=== PATIENT | male | born 1990 | race American Indian/Alaskan Native ===

== ENCOUNTER → 2017-04-18 | Outpatient (CLI) | payer OTHER ==
[~2017-04-18] MED LIST: AMOX500 PO; CITA20 PO; GABA100 PO; Humalog100 UNIT/1; IBUP800 PO; INSULANPEN SC; LISI5 PO; METO10SY PO; Novolog Fl100 UNIT/1 SC; OMEP40CA12 PO; ONDA4ODT MM; PANT40 PO; PREG75 PO; PROM25 PO; Percocet 5-3251 EACH PO; TOUJEO SOL300 UNIT/1 SQ
[2017-04-18 12:51] LABS: Microalb/Creat Ratio UR, Rand Unable to Calculate mg/g (0.000-30.000); Microalbumin, Random Urine <5.000 mg/L (0.000-20.000)
== END | disposition home or self-care (01) ==
LOC: LAB EV 10:05
PROVIDERS: Internal Medicine Endocrinology, Diabetes & Metabolism
DX: E10.65 Type 1 diabetes mellitus with hyperglycemia (principal)
CPT/HCPCS: 82043; 82570

== ENCOUNTER 2017-12-11 22:49 | Emergency (ER) | payer OTHER ==
[~2017-12-11] VITALS: Ht 182.9 cm; Wt 81.2 kg
[~2017-12-11 22:49] MED LIST changes: -CITA20 PO; -Humalog100 UNIT/1; -IBUP800 PO; -ONDA4ODT MM; -TOUJEO SOL300 UNIT/1 SQ
== END 2017-12-12 00:16 | disposition home or self-care (01) ==
LOC: ER 22:49
DX: S20.212A Contusion of left front wall of thorax, initial encounter (principal); E11.40 Type 2 diabetes mellitus with diabetic neuropathy, unspecified; F17.200 Nicotine dependence, unspecified, uncomplicated; Z79.4 Long term (current) use of insulin; Z79.899 Other long term (current) drug therapy; W50.0XXA Accidental hit or strike by another person, initial encounter
CPT/HCPCS: 71100; 99283-25

== ENCOUNTER 2019-01-22 11:13 | Emergency (ER) | payer OTHER ==
[~2019-01-22] VITALS: Ht 182.9 cm; Wt 77.1 kg
[~2019-01-22 11:13] MED LIST changes: +CITA20 PO; +Humalog100 UNIT/1; +IBUP800 PO; +ONDA4ODT MM; +TOUJEO SOL300 UNIT/1 SQ
[2019-01-22] MEDS ORDERED: Monodox100 MG PO (12:32)
== END 2019-01-22 12:40 | disposition home or self-care (01) ==
LOC: ER 11:13
DX: L02.416 Cutaneous abscess of left lower limb (principal); L03.116 Cellulitis of left lower limb; E10.40 Type 1 diabetes mellitus with diabetic neuropathy, unspecified; F17.200 Nicotine dependence, unspecified, uncomplicated
CPT/HCPCS: 99282

== ENCOUNTER 2020-04-20 19:40 | Inpatient (IN) | payer OTHER ==
[~2020-04-20] VITALS: Ht 182.9 cm; Wt 76.1 kg
[~2020-04-20 19:40] MED LIST changes: +HUMALOG100 UNIT/1 SC; -Humalog100 UNIT/1; +Monodox100 MG PO; +PREG25 PO; -PREG75 PO; -TOUJEO SOL300 UNIT/1 SQ; +TOUJEO SOL300 UNIT/2 SC
[2020-04-20 20:00] LABS: BASOPHILS ABSOLUTE AUTO 0.07 K/mm3 (0.00-0.23); BASOPHILS PERCENT AUTO 1 % (0-2); EOSINOPHILS ABSOLUTE AUTO 0.11 K/mm3 (0.00-0.68); EOSINOPHILS PERCENT AUTO 1 % (0-6); Hematocrit 39.1 % (37.0-53.0); Hemoglobin 12.6 g/dL (13.5-17.5); IMMATURE GRAN ABSOLUTE AUTO 0.05 K/mm3 (0.00-0.10); IMMATURE GRAN PERCENT AUTO 1 % (0-1); LYMPHOCYTES ABSOLUTE AUTO 2.77 K/mm3 (0.84-5.20); LYMPHOCYTES PERCENT AUTO 29 % (21-46); MONOCYTES PERCENT AUTO 8 % (4-13); Mean Corpuscular HGB 30.1 pg (26.0-34.0); Mean Corpuscular HGB Conc 32.2 g/dL (31.5-36.5); Mean Corpuscular Volume 93 fL (80-100); Mean Platelet Volume 11.4 fL (9.1-12.4); NEUTROPHILS ABSOLUTE AUTO 5.69 K/mm3 (1.96-9.15); NEUTROPHILS PERCENT AUTO 60 % (41-73); Platelet Count 222 K/mm3 (150-400); RDW Coefficient Variation 12.2 % (11.7-14.2); Red Blood Cell Count 4.19 M/mm3 (4.30-5.90); White Blood Cell Count 9.49 K/mm3 (4.00-11.30)
[2020-04-20 20:04] LABS: Base Excess Venous -7.4 mmol/L; Bicarbonate Venous 18.7 mmol/L (24.0-30.0); PCO2 Venous 40.4 mmHg (38-42); PO2 Venous 63.5 mmHg (38-42); pH Blood Venous 7.29 (7.34-7.37)
[2020-04-20 20:23] LABS: Alanine Aminotransfer (ALT/SGP 19 U/L (12-78); Albumin, Blood 3.4 g/dL (3.4-5.0); Albumin/Globulin Ratio 1.2 (0.8-1.8); Alk Phos 88 U/L (50-136); Anion Gap 14 mmol/L (6-16); Aspartate Aminotrans (AST/SGOT 14 U/L (12-37); Bilirubin, Total 0.8 mg/dL (0.1-1.0); Blood Urea Nitrogen 15 mg/dL (8-24); CO2, Blood 19 mmol/L (21-32); Calcium, Blood 8.4 mg/dL (8.5-10.1); Chloride, Blood 102 mmol/L (98-108); Creatinine, Blood 0.65 mg/dL (0.60-1.20); Globulin, Blood 2.9 g/dL (2.2-4.0); Glomerular Filtration Rate >60 (60-); Glucose, Blood 488 mg/dL (70-99); Potassium, Blood 4.3 mmol/L (3.5-5.5); Sodium, Blood 135 mmol/L (136-145); Total Protein, Blood 6.3 g/dL (6.4-8.2)
[2020-04-20 21:27] LABS: Beta-hydroxybutyrate 61.4 mg/dL (0.2-2.8)
[2020-04-20 22:04] LABS: Source, Urine Clean Catch
[2020-04-20 22:06] LABS: Bilirubin, Urine Neg (Neg); Blood, Urine 1+ (Neg); Glucose Qualitative, Urine 4+ (Neg); Ketones, Urine 4+ (Neg); Leukocyte Esterase, Urine Neg (Neg); Nitrite, Urine Neg (Neg); Protein, Urine 2+ (Neg); Urobilinogen, Urine NORM (Normal)
[2020-04-20 22:17] LABS: Appearance, Urine Clear (Clear); Color, Urine Yellow (P-Yellow)
[2020-04-20 22:18] LABS: Bacteria Not Seen /hpf; Mucus Light (0-Heavy); Red Blood Cells, Urine 0-2 /hpf (0-2); Squamous Epithelial Cells Rare /hpf (Few); White Blood Cells, Urine Not Seen /hpf (0-5)
[2020-04-20 22:23] LABS: U Amphetamine Screen Not Detected; U Barbituate Screen Not Detected; U Benzodiazapine Screen Not Detected; U Buprenorphine Screen Not Detected; U Cannabinoids Screen DETECTED; U Cocaine Screen Not Detected; U Methadone Screen Not Detected; U Methamphetamine Screen Not Detected; U Opiates Screen Not Detected; U Oxycodone Screen DETECTED; U Phencyclidine Screen Not Detected; U Propoxyphene Screen Not Detected
[2020-04-21 00:10] LABS: Calcium, Ionized (POC) 1.13 mmol/L (1.10-1.46); Chloride (POC) 105 mmol/L (98-108); Creatinine (POC) 0.6 mg/dL (0.8-1.3); Glucose (ISTAT POC) 549 mg/dL (70-99); Hemoglobin (POC) 12.9 g/dL (13.5-17.5); Potassium (POC) 4.7 mmol/L (3.5-5.5); Sodium (POC) 134 mmol/L (135-148); Total CO2 (POC) 12 mmol/L (21-32)
[2020-04-21 02:16] LABS: Anion Gap 22 mmol/L (6-16); Blood Urea Nitrogen 18 mg/dL (8-24); Bun/Creatinine Ratio 22.2 (12.0-20.0); CO2, Blood 10 mmol/L (21-32); Calcium, Blood 8.2 mg/dL (8.5-10.1); Chloride, Blood 105 mmol/L (98-108); Creatinine, Blood 0.81 mg/dL (0.60-1.20); Glomerular Filtration Rate >60 (60-); Glucose, Blood 464 mg/dL (70-99); Potassium, Blood 4.3 mmol/L (3.5-5.5); Sodium, Blood 137 mmol/L (136-145)
--- NOTE | 2020-04-21 03:06 | NUR ---
PT TO ICU 15 VIA GURNEY WITH ED RN @ 0150, PT ALERT AND ORIENTED x4, AMBULATES TO HOSPITAL BED WITH STAND BY ASSISTANCE, O2 SATURATIONS> 95% ON RA, MONITOR SHOWS SINUS TACH WITH HR 110-120, HTN NOTED WITH SBP 160'S. PT DENIES PAIN. INSULIN GTT INF @ 8u/hr, DECREASED TO 5u AFTER CBG UPON ARRIVAL (SEE FLOWSHEET). PT DENIES NAUSEA, REQUESTS WATER, TOLERATING PO INTAKE WELL. PT USES URINAL INDEPENDENTLY, DENIES ANY OTHER GI/ ISSUES. CALL LIGHT WITHIN REACH, PT EDUCATED ON USE.
--- NOTE | 2020-04-21 06:07 | NUR ---
SHIFT SUMMARY PT SLEPT T/O SHIFT, AROUSES TO VERBAL STIMULI, ORIENTED x4, O2 SATURATIONS> 95% ON RA, MONITOR SHOWS SINUS RHYTHM WITH HR 100-115 WHILE RESTING IN BED, HR INCREASES TO 150'S WHILE STANDING TO USE URINAL, PT DENIES DIZZINES/CP/SOB. PT TOLERATING PO FLUID INTAKE, DENIES NAUSEA. PT VOIDING WITH URINAL INDEPENENDENTLY. D5 1/2NS INF @ 1OOml/hr, INSULIN INF @ 2u/hr. CALL LIGHT WITHIN REACH.
[2020-04-21 08:09] LABS: BASOPHILS ABSOLUTE AUTO 0.11 K/mm3 (0.00-0.23); BASOPHILS PERCENT AUTO 1 % (0-2); EOSINOPHILS ABSOLUTE AUTO 0.01 K/mm3 (0.00-0.68); EOSINOPHILS PERCENT AUTO 0 % (0-6); Hematocrit 36.2 % (37.0-53.0); Hemoglobin 11.7 g/dL (13.5-17.5); IMMATURE GRAN ABSOLUTE AUTO 0.16 K/mm3 (0.00-0.10); IMMATURE GRAN PERCENT AUTO 1 % (0-1); LYMPHOCYTES PERCENT AUTO 15 % (21-46); MONOCYTES ABSOLUTE AUTO 1.58 K/mm3 (0.16-1.47); MONOCYTES PERCENT AUTO 8 % (4-13); Mean Corpuscular HGB 30.3 pg (26.0-34.0); Mean Corpuscular HGB Conc 32.3 g/dL (31.5-36.5); Mean Corpuscular Volume 94 fL (80-100); Mean Platelet Volume 11.2 fL (9.1-12.4); NEUTROPHILS ABSOLUTE AUTO 15.51 K/mm3 (1.96-9.15); NEUTROPHILS PERCENT AUTO 76 % (41-73); Platelet Count 239 K/mm3 (150-400); RDW Coefficient Variation 12.4 % (11.7-14.2); RDW Standard Deviation 42.8 fL (35.1-46.3); Red Blood Cell Count 3.86 M/mm3 (4.30-5.90); White Blood Cell Count 20.47 K/mm3 (4.00-11.30)
[2020-04-21 08:30] LABS: Alanine Aminotransfer (ALT/SGP 22 U/L (12-78); Albumin, Blood 3.1 g/dL (3.4-5.0); Albumin/Globulin Ratio 1.1 (0.8-1.8); Alk Phos 84 U/L (50-136); Anion Gap 14 mmol/L (6-16); Aspartate Aminotrans (AST/SGOT 14 U/L (12-37); Bilirubin, Total 0.5 mg/dL (0.1-1.0); Blood Urea Nitrogen 11 mg/dL (8-24); Bun/Creatinine Ratio 15.3 (12.0-20.0); CO2, Blood 17 mmol/L (21-32); Calcium, Blood 7.9 mg/dL (8.5-10.1); Chloride, Blood 109 mmol/L (98-108); Creatinine, Blood 0.72 mg/dL (0.60-1.20); Globulin, Blood 2.8 g/dL (2.2-4.0); Glomerular Filtration Rate >60 (60-); Glucose, Blood 186 mg/dL (70-99); Potassium, Blood 3.9 mmol/L (3.5-5.5); Sodium, Blood 140 mmol/L (136-145); Total Protein, Blood 5.9 g/dL (6.4-8.2)
--- NOTE | 2020-04-21 09:54 | NUR ---
permisdsion of care was given at 0800 on 04/21/2020.
--- NOTE | 2020-04-21 12:30 | NUR ---
REASSESSMENT PT REMAINS ON INSULIN GTT AND STARTED ON SSI W/ MEALS. PT REPORTS NAUSEA IS GREATLY IMPROVED AND IS TOLERATING MEALS. PLAN TO TRANSITION OFF OF INSULIN GTT THIS EVENING. PT HAS BEEN AMBULATORY IN ROOM AND ABLE TO USE RESTROOM INDEPDANTLY.
--- NOTE | 2020-04-21 13:00 | NUR ---
PT HAS AMBULATED TO THE TOILET MULTIPLE TIMES. NO DIFFICULTIES WITH URINATION OR BM. PT REMAINS A/O. PT IS REMAINING ON INSULIN DRIP. PT ATE A FULL BREAKFAST AND LUNCH. HUMALOG ON LOW SLIDING SCALE STARTED AT LUNCH. PT REPORTS NO PAIN.
--- NOTE | 2020-04-21 14:36 | NUR ---
Permission of care Patient gave [facility], permission to assist with care on 04/21/2020.
[2020-04-21 15:28] LABS: Anion Gap 9 mmol/L (6-16); Blood Urea Nitrogen 9 mg/dL (8-24); Bun/Creatinine Ratio 12.9 (12.0-20.0); CO2, Blood 23 mmol/L (21-32); Calcium, Blood 8.4 mg/dL (8.5-10.1); Chloride, Blood 110 mmol/L (98-108); Glomerular Filtration Rate >60 (60-); Glucose, Blood 177 mg/dL (70-99); Potassium, Blood 3.6 mmol/L (3.5-5.5); Sodium, Blood 142 mmol/L (136-145)
--- NOTE | 2020-04-21 16:00 | NUR ---
REASSESSMENT PT REMAINS ON INSULIN GTT, CBG STABLE. PT TOLERATED BREAKFAST AND LUNCH, REPORTS NAUSEA IS STILL IMPROVING. VITALS REMAIN STABLE. SINUS RHYTHM ON THE MONITOR.
--- NOTE | 2020-04-21 18:21 | NUR ---
SHIFT SUMMARY PT IS ALERT AND ORIENTEDx4, FEELING BETTER TODAY. NAUSEA HAS GREATLY IMPROVED THROUGH OUT THE DAY. INSULIN GTT REMAINS ON WITH STABLE CBG'S. LONG ACTING INSULIN GIVEN. ORDERS RECEIVED TO STOP INSULIN GTT 2 HOURS AFTER LONG ACTING INSULIN, WHICH WILL BE 1999 TONIGHT. ORDERS ALSO RECEIVED THAT PT MAY CHANGE STATUS TO MEDICAL WITH TELEMETERY AFTER INSULIN GTT IS STOPPED. VITALS HAVE REMAINED STABLE WITH IMPROVEMENT TO HR TODAY. PT IS CURRENTLY SINUS RHYTHM ON THE MONITOR.
[2020-04-21 20:26] LABS: Anion Gap 4 mmol/L (6-16); Blood Urea Nitrogen 7 mg/dL (8-24); Bun/Creatinine Ratio 11.4 (12.0-20.0); CO2, Blood 27 mmol/L (21-32); Calcium, Blood 8.3 mg/dL (8.5-10.1); Chloride, Blood 110 mmol/L (98-108); Creatinine, Blood 0.62 mg/dL (0.60-1.20); Glomerular Filtration Rate >60 (60-); Glucose, Blood 214 mg/dL (70-99); Potassium, Blood 3.4 mmol/L (3.5-5.5); Sodium, Blood 141 mmol/L (136-145)
--- NOTE | 2020-04-21 21:51 | NUR ---
ASSUMED CARE AT 1900 PT IS ALERT/ORIENTED AND IS ABLE TO MAKE HIS NEEDS KNOWN. PT WATCHING TV DURING BEDSIDE REPORT AND PLESENT TO RN'S. PT NO COMPLAINTS OF NAUSEA AND WAS ABLE TO EAT 100% OF DINNER. VSS. PT USES TOILET APPRORIATLLY. INSULIN GTT TURNED OFF AT 2001, POC GLUCOSE 188 AT THAT TIME. CALL LIGHT IN REACH, BED IN LOW POSITION. 1L OF NS FINISHED INFUSING, PT NOW SALINE LOCKED. SEE SHIFT ASSESSMENT FOR FULL ASSESSMENT.
[2020-04-22 02:09] LABS: BASOPHILS ABSOLUTE AUTO 0.08 K/mm3 (0.00-0.23); BASOPHILS PERCENT AUTO 1 % (0-2); EOSINOPHILS ABSOLUTE AUTO 0.17 K/mm3 (0.00-0.68); EOSINOPHILS PERCENT AUTO 2 % (0-6); Hematocrit 33.2 % (37.0-53.0); Hemoglobin 11.1 g/dL (13.5-17.5); IMMATURE GRAN ABSOLUTE AUTO 0.08 K/mm3 (0.00-0.10); IMMATURE GRAN PERCENT AUTO 1 % (0-1); LYMPHOCYTES ABSOLUTE AUTO 3.72 K/mm3 (0.84-5.20); LYMPHOCYTES PERCENT AUTO 36 % (21-46); MONOCYTES ABSOLUTE AUTO 0.88 K/mm3 (0.16-1.47); MONOCYTES PERCENT AUTO 8 % (4-13); Mean Corpuscular HGB 30.4 pg (26.0-34.0); Mean Corpuscular HGB Conc 33.4 g/dL (31.5-36.5); Mean Corpuscular Volume 91 fL (80-100); Mean Platelet Volume 10.9 fL (9.1-12.4); NEUTROPHILS ABSOLUTE AUTO 5.51 K/mm3 (1.96-9.15); NEUTROPHILS PERCENT AUTO 53 % (41-73); Platelet Count 215 K/mm3 (150-400); RDW Coefficient Variation 12.1 % (11.7-14.2); RDW Standard Deviation 40.6 fL (35.1-46.3); Red Blood Cell Count 3.65 M/mm3 (4.30-5.90); White Blood Cell Count 10.44 K/mm3 (4.00-11.30)
[2020-04-22 02:14] LABS: Anion Gap 4 mmol/L (6-16); Blood Urea Nitrogen 6 mg/dL (8-24); CO2, Blood 29 mmol/L (21-32); Calcium, Blood 8.1 mg/dL (8.5-10.1); Chloride, Blood 111 mmol/L (98-108); Creatinine, Blood 0.67 mg/dL (0.60-1.20); Glomerular Filtration Rate >60 (60-); Glucose, Blood 239 mg/dL (70-99); Potassium, Blood 3.3 mmol/L (3.5-5.5); Sodium, Blood 144 mmol/L (136-145)
--- NOTE | 2020-04-22 05:39 | NUR ---
END OF SHIFT SUMMARY PT SLEPT MOST OF THE NIGHT. PT IS ALERT/ORIENTED AND ABLE TO MAKE NEEDS KNOWN. VSS. NO COMPLAINTS OF NAUSEA, PT TOLERATES FOOD AND LIQUIDS GREAT. PT USED TOILET IN ROOM WHEN NEEDED WITHOUT ASSISTANCE. BED IN LOW POSITION, CALL LIGHT WITHIN REACH. WILL REPORT TO AM RN WHEN AVIALABLE.
--- NOTE | 2020-04-22 10:26 | NUR ---
DISCHARGE INSTRUCTIONS GONE OVER WITH PT. INSTRUCTED PT ON FOLLOW UP APPOINTMENTS. PT STATED UNDERSTANDING. BELONGINGS GATHERED AND GIVEN TO PT. PT ESCORTED TO MAIN ENTRANCE WHERE HIS RIDE WAS WAITING FOR HIM.
== END 2020-04-22 10:20 | disposition home or self-care (01) | DRG 639 ==
LOC: ER 19:40 → ERHOLD 04-21 00:42 → ICUW 04-21 01:50
PROVIDERS: Emergency Medicine; Student in an Organized Health Care Education/Training Program; ADMIT Internal Medicine
DX: E10.10 Type 1 diabetes mellitus with ketoacidosis without coma (principal); D64.9 Anemia, unspecified; F17.210 Nicotine dependence, cigarettes, uncomplicated; F19.10 Other psychoactive substance abuse, uncomplicated; E10.40 Type 1 diabetes mellitus with diabetic neuropathy, unspecified; E86.0 Dehydration; Z79.4 Long term (current) use of insulin
CPT/HCPCS: 36415; 80047; 80048; 80053; 81001; 82010; 82803; 82947; 85014; 85025; 96361; 96372; 96374; 96375; 99285-25; A9270; G0378; J1630; J1650; J1815; J2405; J2765; J3010; J7030; J7042

== ENCOUNTER 2020-11-04 13:23 | Emergency (ER) | payer OTHER ==
[~2020-11-04] VITALS: Ht 185.4 cm; Wt 78.0 kg
[2020-11-04 13:55] LABS: BASOPHILS ABSOLUTE AUTO 0.09 K/mm3 (0.00-0.23); BASOPHILS PERCENT AUTO 1 % (0-2); EOSINOPHILS ABSOLUTE AUTO 0.02 K/mm3 (0.00-0.68); EOSINOPHILS PERCENT AUTO 0 % (0-6); Hematocrit 36.7 % (37.0-53.0); Hemoglobin 12.2 g/dL (13.5-17.5); IMMATURE GRAN ABSOLUTE AUTO 0.03 K/mm3 (0.00-0.10); IMMATURE GRAN PERCENT AUTO 0 % (0-1); LYMPHOCYTES ABSOLUTE AUTO 1.26 K/mm3 (0.84-5.20); LYMPHOCYTES PERCENT AUTO 10 % (21-46); MONOCYTES ABSOLUTE AUTO 0.55 K/mm3 (0.16-1.47); MONOCYTES PERCENT AUTO 5 % (4-13); Mean Corpuscular HGB 30.2 pg (26.0-34.0); Mean Corpuscular HGB Conc 33.2 g/dL (31.5-36.5); Mean Corpuscular Volume 91 fL (80-100); Mean Platelet Volume 11.3 fL (9.1-12.4); NEUTROPHILS ABSOLUTE AUTO 10.19 K/mm3 (1.96-9.15); NEUTROPHILS PERCENT AUTO 84 % (41-73); Platelet Count 194 K/mm3 (150-400); RDW Coefficient Variation 11.8 % (11.7-14.2); RDW Standard Deviation 39.4 fL (35.1-46.3); Red Blood Cell Count 4.04 M/mm3 (4.30-5.90); White Blood Cell Count 12.14 K/mm3 (4.00-11.30)
[2020-11-04 14:27] LABS: Alanine Aminotransfer (ALT/SGP 31 U/L (12-78); Albumin, Blood 3.2 g/dL (3.4-5.0); Alk Phos 106 U/L (50-136); Anion Gap 10 mmol/L (6-16); Aspartate Aminotrans (AST/SGOT 28 U/L (12-37); Bilirubin, Total 0.6 mg/dL (0.1-1.0); Blood Urea Nitrogen 11 mg/dL (8-24); CO2, Blood 24 mmol/L (21-32); Calcium, Blood 8.5 mg/dL (8.5-10.1); Chloride, Blood 104 mmol/L (98-108); Creatinine, Blood 0.69 mg/dL (0.60-1.20); Globulin, Blood 3.3 g/dL (2.2-4.0); Glomerular Filtration Rate >60 (60-); Glucose, Blood 300 mg/dL (70-99); Potassium, Blood 3.7 mmol/L (3.5-5.5); Sodium, Blood 138 mmol/L (136-145); Total Protein, Blood 6.5 g/dL (6.4-8.2); Troponin I <0.015 ng/mL (0.000-0.040)
[2020-11-04] MEDS ORDERED: Inderal40 MG PO (15:32)
[2020-11-04] MEDS ORDERED: PROM25 PO (16:10)
[2020-11-05] MEDS ORDERED: ONDA4ODT MM ×3 (15:02→15:14)
[2020-11-05] MEDS ORDERED: FAMO20 PO ×3 (15:02→15:14)
== END 2020-11-04 16:48 | disposition home or self-care (01) ==
LOC: ER 13:23
PROVIDERS: Emergency Medicine
DX: A08.4 Viral intestinal infection, unspecified (principal); E11.10 Type 2 diabetes mellitus with ketoacidosis without coma; Z87.891 Personal history of nicotine dependence; Z79.4 Long term (current) use of insulin; Z79.899 Other long term (current) drug therapy
CPT/HCPCS: 80053; 82010; 82800; 82947; 84484; 85025; 93005; 93010; 96374; 96375; 99284-25; J1170; J2550; J7030

== ENCOUNTER 2020-11-05 10:11 | Emergency (ER) | payer OTHER ==
[~2020-11-05] VITALS: Ht 182.9 cm; Wt 78.0 kg
[~2020-11-05 10:11] MED LIST changes: +Inderal40 MG PO
[2020-11-05 10:36] LABS: BASOPHILS ABSOLUTE AUTO 0.04 K/mm3 (0.00-0.23); BASOPHILS PERCENT AUTO 0 % (0-2); EOSINOPHILS PERCENT AUTO 0 % (0-6); Hematocrit 34.5 % (37.0-53.0); Hemoglobin 11.5 g/dL (13.5-17.5); IMMATURE GRAN ABSOLUTE AUTO 0.08 K/mm3 (0.00-0.10); IMMATURE GRAN PERCENT AUTO 1 % (0-1); LYMPHOCYTES ABSOLUTE AUTO 1.91 K/mm3 (0.84-5.20); LYMPHOCYTES PERCENT AUTO 13 % (21-46); MONOCYTES ABSOLUTE AUTO 0.84 K/mm3 (0.16-1.47); MONOCYTES PERCENT AUTO 6 % (4-13); Mean Corpuscular HGB 30.3 pg (26.0-34.0); Mean Corpuscular HGB Conc 33.3 g/dL (31.5-36.5); Mean Corpuscular Volume 91 fL (80-100); Mean Platelet Volume 11.3 fL (9.1-12.4); NEUTROPHILS ABSOLUTE AUTO 12.45 K/mm3 (1.96-9.15); NEUTROPHILS PERCENT AUTO 81 % (41-73); Platelet Count 210 K/mm3 (150-400); RDW Standard Deviation 40.4 fL (35.1-46.3); Red Blood Cell Count 3.79 M/mm3 (4.30-5.90); White Blood Cell Count 15.32 K/mm3 (4.00-11.30)
[2020-11-05 11:17] LABS: Alanine Aminotransfer (ALT/SGP 37 U/L (12-78); Albumin, Blood 3.1 g/dL (3.4-5.0); Alk Phos 99 U/L (50-136); Anion Gap 14 mmol/L (6-16); Aspartate Aminotrans (AST/SGOT 38 U/L (12-37); Beta-hydroxybutyrate 38.2 mg/dL (0.2-2.8); Bilirubin, Total 0.5 mg/dL (0.1-1.0); Blood Urea Nitrogen 8 mg/dL (8-24); CO2, Blood 19 mmol/L (21-32); Calcium, Blood 8.3 mg/dL (8.5-10.1); Chloride, Blood 107 mmol/L (98-108); Creatinine, Blood 0.73 mg/dL (0.60-1.20); Glomerular Filtration Rate >60 (60-); Glucose, Blood 271 mg/dL (70-99); Magnesium, Blood 1.7 mg/dL (1.6-2.4); Potassium, Blood 3.6 mmol/L (3.5-5.5); Sodium, Blood 140 mmol/L (136-145); Total Protein, Blood 6.1 g/dL (6.4-8.2)
[2020-11-05 11:26] LABS: Base Excess Venous -3.4 mmol/L; Bicarbonate Venous 22.6 mmol/L (24.0-30.0); PCO2 Venous 26.4 mmHg (38-42); pH Blood Venous 7.49 (7.34-7.37)
[2020-11-05 11:27] LABS: Source, Urine Clean Catch
[2020-11-05 11:32] LABS: Appearance, Urine Clear (Clear); Bilirubin, Urine Neg (Neg); Blood, Urine 4+ (Neg); Color, Urine Yellow (P-Yellow); Glucose Qualitative, Urine 4+ (Neg); Ketones, Urine 4+ (Neg); Leukocyte Esterase, Urine Neg (Neg); Nitrite, Urine Neg (Neg); Protein, Urine 3+ (Neg); Urobilinogen, Urine NORM (Normal)
[2020-11-05 11:49] LABS: Bacteria Rare /hpf; Squamous Epithelial Cells Rare /hpf (Few); U Amphetamine Screen Not Detected; U Barbituate Screen Not Detected; U Benzodiazapine Screen Not Detected; U Cannabinoids Screen DETECTED; U Cocaine Screen DETECTED; U Methadone Screen Not Detected; U Methamphetamine Screen Not Detected; U Opiates Screen Not Detected; U Phencyclidine Screen Not Detected; White Blood Cells, Urine 0-2 /hpf (0-5)
[2020-11-05 11:50] LABS: U Buprenorphine Screen Not Detected; U Oxycodone Screen Not Detected; U Propoxyphene Screen Not Detected
[2020-11-05 14:20] LABS: Blood Urea Nitrogen 7 mg/dL (8-24); Bun/Creatinine Ratio 10.1 (12.0-20.0); CO2, Blood 22 mmol/L (21-32); Calcium, Blood 8.1 mg/dL (8.5-10.1); Glomerular Filtration Rate >60 (60-); Glucose, Blood 198 mg/dL (70-99)
[2020-11-05 14:48] LABS: Anion Gap 10 mmol/L (6-16); Chloride, Blood 110 mmol/L (98-108); Potassium, Blood 3.4 mmol/L (3.5-5.5); Sodium, Blood 142 mmol/L (136-145)
[2020-11-05] MEDS ORDERED: ONDA4ODT MM ×2 (15:02→15:14)
[2020-11-05] MEDS ORDERED: FAMO20 PO ×2 (15:02→15:14)
== END 2020-11-05 15:15 | disposition home or self-care (01) ==
LOC: ER 10:11
PROVIDERS: Student in an Organized Health Care Education/Training Program
DX: E10.10 Type 1 diabetes mellitus with ketoacidosis without coma (principal); E10.40 Type 1 diabetes mellitus with diabetic neuropathy, unspecified; E86.0 Dehydration; E87.6 Hypokalemia; R10.13 Epigastric pain; R11.2 Nausea with vomiting, unspecified; R19.7 Diarrhea, unspecified; F12.90 Cannabis use, unspecified, uncomplicated; Z87.891 Personal history of nicotine dependence; Z79.4 Long term (current) use of insulin; Z79.899 Other long term (current) drug therapy
CPT/HCPCS: 36415; 80048; 80053; 81001; 82010; 82803; 82947; 83690; 83735; 85025; 96361; 96374; 96375; 99285-25; A9270; J1815; J2765; J7030

== ENCOUNTER 2022-01-31 20:02 | Emergency (ER) | payer OTHER ==
[~2022-01-31] VITALS: Ht 182.9 cm; Wt 81.7 kg
[~2022-01-31 20:02] MED LIST changes: +FAMO20 PO
[2022-01-31 22:40] LABS: BASOPHILS ABSOLUTE AUTO 0.12 K/mm3 (0.00-0.23); BASOPHILS PERCENT AUTO 1 % (0-2); EOSINOPHILS ABSOLUTE AUTO 0.35 K/mm3 (0.00-0.68); EOSINOPHILS PERCENT AUTO 3 % (0-6); Hematocrit 33.1 % (37.0-53.0); Hemoglobin 11.3 g/dL (13.5-17.5); IMMATURE GRAN ABSOLUTE AUTO 0.04 K/mm3 (0.00-0.10); IMMATURE GRAN PERCENT AUTO 0 % (0-1); LYMPHOCYTES ABSOLUTE AUTO 2.48 K/mm3 (0.84-5.20); LYMPHOCYTES PERCENT AUTO 19 % (21-46); MONOCYTES ABSOLUTE AUTO 1.51 K/mm3 (0.16-1.47); MONOCYTES PERCENT AUTO 12 % (4-13); Mean Corpuscular HGB 30.6 pg (26.0-34.0); Mean Corpuscular HGB Conc 34.1 g/dL (31.5-36.5); Mean Corpuscular Volume 90 fL (80-100); Mean Platelet Volume 11.4 fL (9.1-12.4); NEUTROPHILS PERCENT AUTO 65 % (41-73); Platelet Count 253 K/mm3 (150-400); RDW Coefficient Variation 13.1 % (11.7-14.2); RDW Standard Deviation 43.2 fL (35.1-46.3); Red Blood Cell Count 3.69 M/mm3 (4.30-5.90)
[2022-01-31 22:58] LABS: Albumin, Blood 3.4 g/dL (3.4-5.0); Bilirubin, Total 0.6 mg/dL (0.1-1.0); Bun/Creatinine Ratio 16.8 (12.0-20.0); Calcium, Blood 8.7 mg/dL (8.5-10.1); Creatinine, Blood 0.95 mg/dL (0.60-1.20); Globulin, Blood 3.4 g/dL (2.2-4.0); Potassium, Blood 3.9 mmol/L (3.5-5.5); Total Protein, Blood 6.8 g/dL (6.4-8.2)
[2022-02-01] MEDS ORDERED: AMOCLA875 PO (00:17)
== END 2022-02-01 00:35 | disposition home or self-care (01) ==
LOC: ER 20:02
PROVIDERS: Student in an Organized Health Care Education/Training Program
DX: S01.351A Open bite of right ear, initial encounter (principal); W54.0XXA Bitten by dog, initial encounter; L08.9 Local infection of the skin and subcutaneous tissue, unspecified; E10.40 Type 1 diabetes mellitus with diabetic neuropathy, unspecified; F17.290 Nicotine dependence, other tobacco product, uncomplicated
CPT/HCPCS: 36415; 80053; 83605; 85025; 93005; 93010; A9270; J2543; J7030

== ENCOUNTER 2022-02-07 05:36 | Inpatient (IN) | payer OTHER ==
[~2022-02-07] VITALS: Ht 185.4 cm; Wt 79.8 kg
[~2022-02-07 05:36] MED LIST changes: +AMOCLA875 PO
[2022-02-07 06:01] LABS: Bicarbonate Venous 13.8 mmol/L (24.0-30.0); PCO2 Venous 34.4 mmHg (38-42)
[2022-02-07 06:02] LABS: pH Blood Venous 7.19 (7.34-7.37)
[2022-02-07 06:03] LABS: BASOPHILS ABSOLUTE AUTO 0.14 K/mm3 (0.00-0.23); BASOPHILS PERCENT AUTO 1 % (0-2); EOSINOPHILS ABSOLUTE AUTO 0.02 K/mm3 (0.00-0.68); EOSINOPHILS PERCENT AUTO 0 % (0-6); Hematocrit 42.4 % (37.0-53.0); Hemoglobin 13.4 g/dL (13.5-17.5); IMMATURE GRAN ABSOLUTE AUTO 0.13 K/mm3 (0.00-0.10); IMMATURE GRAN PERCENT AUTO 1 % (0-1); LYMPHOCYTES ABSOLUTE AUTO 0.98 K/mm3 (0.84-5.20); LYMPHOCYTES PERCENT AUTO 6 % (21-46); MONOCYTES ABSOLUTE AUTO 0.78 K/mm3 (0.16-1.47); MONOCYTES PERCENT AUTO 4 % (4-13); Mean Corpuscular HGB 29.3 pg (26.0-34.0); Mean Corpuscular HGB Conc 31.6 g/dL (31.5-36.5); Mean Corpuscular Volume 93 fL (80-100); Mean Platelet Volume 11.5 fL (9.1-12.4); NEUTROPHILS ABSOLUTE AUTO 15.85 K/mm3 (1.96-9.15); NEUTROPHILS PERCENT AUTO 89 % (41-73); Platelet Count 338 K/mm3 (150-400); RDW Coefficient Variation 12.6 % (11.7-14.2); RDW Standard Deviation 43.2 fL (35.1-46.3); Red Blood Cell Count 4.57 M/mm3 (4.30-5.90)
[2022-02-07 06:08] LABS: Source, Urine Clean Catch
[2022-02-07 06:11] LABS: Bilirubin, Urine Neg (Neg); Blood, Urine 2+ (Neg); Color, Urine Yellow (P-Yellow); Glucose Qualitative, Urine 4+ (Neg); Ketones, Urine 4+ (Neg); Leukocyte Esterase, Urine Neg (Neg); Nitrite, Urine Neg (Neg); Protein, Urine 3+ (Neg); Specific Gravity, Urine 1.025 (1.003-1.022); Urobilinogen, Urine NORM (Normal)
[2022-02-07 06:17] LABS: Appearance, Urine Hazy (Clear)
[2022-02-07 06:19] LABS: Bacteria Not Seen /hpf; Squamous Epithelial Cells Not Seen /hpf (Few); White Blood Cells, Urine Not Seen /hpf (0-5)
[2022-02-07 06:35] LABS: Albumin, Blood 3.2 g/dL (3.4-5.0); Albumin/Globulin Ratio 0.8 (0.8-1.8); Bilirubin, Total 0.7 mg/dL (0.1-1.0); Bun/Creatinine Ratio 23.9 (12.0-20.0); Calcium, Blood 8.9 mg/dL (8.5-10.1); Creatinine, Blood 0.92 mg/dL (0.60-1.20); Globulin, Blood 3.8 g/dL (2.2-4.0); Potassium, Blood 4.6 mmol/L (3.5-5.5)
[2022-02-07 06:56] LABS: Beta-hydroxybutyrate 94.5 mg/dL (0.2-2.8)
[2022-02-07] MEDS ORDERED: TRAM50 PO (07:07)
[2022-02-07] MEDS ORDERED: BASAGLAR K100 UNIT/3 SC (07:07)
[2022-02-07 09:28] LABS: Albumin, Blood 2.5 g/dL (3.4-5.0); Anion Gap 15 mmol/L (6-16); Blood Urea Nitrogen 20 mg/dL (8-24); Bun/Creatinine Ratio 22.5 (12.0-20.0); CO2, Blood 18 mmol/L (21-32); Calcium, Blood 7.8 mg/dL (8.5-10.1); Chloride, Blood 109 mmol/L (98-108); Creatinine, Blood 0.89 mg/dL (0.60-1.20); Glomerular Filtration Rate 117 (60-); Glucose, Blood 241 mg/dL (70-99); Phosphorus, Blood 2.5 mg/dL (2.5-4.9); Potassium, Blood 4.2 mmol/L (3.5-5.5); Sodium, Blood 142 mmol/L (136-145)
[2022-02-07 10:55] LABS: Albumin, Blood 2.7 g/dL (3.4-5.0); Anion Gap 11 mmol/L (6-16); Blood Urea Nitrogen 16 mg/dL (8-24); Bun/Creatinine Ratio 20.6 (12.0-20.0); CO2, Blood 19 mmol/L (21-32); Chloride, Blood 109 mmol/L (98-108); Creatinine, Blood 0.78 mg/dL (0.60-1.20); Glomerular Filtration Rate 122 (60-); Glucose, Blood 215 mg/dL (70-99); Phosphorus, Blood 2.8 mg/dL (2.5-4.9); Potassium, Blood 4.4 mmol/L (3.5-5.5); Sodium, Blood 139 mmol/L (136-145)
[2022-02-07 16:04] LABS: Albumin, Blood 2.5 g/dL (3.4-5.0); Anion Gap 7 mmol/L (6-16); Blood Urea Nitrogen 13 mg/dL (8-24); Bun/Creatinine Ratio 19.7 (12.0-20.0); CO2, Blood 23 mmol/L (21-32); Calcium, Blood 7.6 mg/dL (8.5-10.1); Chloride, Blood 111 mmol/L (98-108); Creatinine, Blood 0.66 mg/dL (0.60-1.20); Glomerular Filtration Rate 128 (60-); Glucose, Blood 211 mg/dL (70-99); Phosphorus, Blood 1.7 mg/dL (2.5-4.9); Potassium, Blood 4.2 mmol/L (3.5-5.5); Sodium, Blood 141 mmol/L (136-145)
--- NOTE | 2022-02-07 19:19 | NUR ---
SHIFT SUMMARY: NEURO: WNL RESPIRATORY: WNL CARDIAC: sinus tachycardia GI/: pt up to bedside commode independantly. voiding and stooling without issue SKIN: diaphoretic and pale. right ear wound photographed, cleaned, and antibiotic ointment applied. See chart for photos
[2022-02-07 23:00] LABS: Bun/Creatinine Ratio 11.1 (12.0-20.0); Calcium, Blood 7.7 mg/dL (8.5-10.1); Creatinine, Blood 0.81 mg/dL (0.60-1.20); Potassium, Blood 3.8 mmol/L (3.5-5.5)
[2022-02-08 04:54] LABS: BASOPHILS ABSOLUTE AUTO 0.09 K/mm3 (0.00-0.23); BASOPHILS PERCENT AUTO 1 % (0-2); EOSINOPHILS ABSOLUTE AUTO 0.26 K/mm3 (0.00-0.68); EOSINOPHILS PERCENT AUTO 2 % (0-6); Hematocrit 31.2 % (37.0-53.0); Hemoglobin 10.7 g/dL (13.5-17.5); IMMATURE GRAN ABSOLUTE AUTO 0.06 K/mm3 (0.00-0.10); IMMATURE GRAN PERCENT AUTO 0 % (0-1); LYMPHOCYTES ABSOLUTE AUTO 3.26 K/mm3 (0.84-5.20); LYMPHOCYTES PERCENT AUTO 21 % (21-46); MONOCYTES ABSOLUTE AUTO 1.33 K/mm3 (0.16-1.47); MONOCYTES PERCENT AUTO 9 % (4-13); Mean Corpuscular HGB 30.3 pg (26.0-34.0); Mean Corpuscular HGB Conc 34.3 g/dL (31.5-36.5); Mean Platelet Volume 10.5 fL (9.1-12.4); NEUTROPHILS ABSOLUTE AUTO 10.22 K/mm3 (1.96-9.15); NEUTROPHILS PERCENT AUTO 67 % (41-73); Platelet Count 299 K/mm3 (150-400); RDW Coefficient Variation 12.6 % (11.7-14.2); RDW Standard Deviation 40.8 fL (35.1-46.3); Red Blood Cell Count 3.53 M/mm3 (4.30-5.90); White Blood Cell Count 15.22 K/mm3 (4.00-11.30)
[2022-02-08 04:59] LABS: Mean Corpuscular Volume 88 fL (80-100)
[2022-02-08 05:12] LABS: Beta-hydroxybutyrate 1.3 mg/dL (0.2-2.8); Bun/Creatinine Ratio 7.3 (12.0-20.0); Calcium, Blood 8.1 mg/dL (8.5-10.1); Creatinine, Blood 0.83 mg/dL (0.60-1.20); Potassium, Blood 3.3 mmol/L (3.5-5.5)
--- NOTE | 2022-02-08 05:29 | NUR ---
PT TRANSITIONED OFF INSULIN GTT AROUND 2300. CHANGED TO MED SURG STATUS. PT WITHOUT ANY EVENTS TONIGHT. EAR PEARS CLEAN STILL. ANGELINA. VSS.
--- NOTE | 2022-02-08 07:15 | NUR ---
Assumed care of pt at 0700. Report received from Miranda WARE. Pt A&O x 4. Answers questions, follows commands, verbalizes needs. Pleasant and cooperative with care. SpO2 90% or greater. Insulin off.
--- NOTE | 2022-02-08 09:00 | NUR ---
Dr Stewart in to see patient. Provider plans for patient to discharge home today.
[2022-02-08] MEDS ORDERED: BACITRACIN ZIN1 EAC1 TOP (10:09)
[2022-02-08] MEDS ORDERED: VISBIOME 112.51 EACH PO (10:10)
--- NOTE | 2022-02-08 10:28 | NUR ---
Patient discharged with friend to provide ride. Ambulated self out of unit. This RN arranged follow up appointment for pt with PCP for tomorrow, which pt states will work for him. Faxed medications to [facility], which pt states is his preferred pharmacy. IV access discontinued.
== END 2022-02-08 10:25 | disposition home or self-care (01) | DRG 871 ==
LOC: ER 05:36 → ICUW 07:41 → ICUE 19:57
PROVIDERS: Emergency Medicine; Internal Medicine; ADMIT Internal Medicine
DX: A41.9 Sepsis, unspecified organism (principal); E10.10 Type 1 diabetes mellitus with ketoacidosis without coma; H60.11 Cellulitis of right external ear; E10.42 Type 1 diabetes mellitus with diabetic polyneuropathy; S01.351A Open bite of right ear, initial encounter; W54.0XXA Bitten by dog, initial encounter; Z87.891 Personal history of nicotine dependence
CPT/HCPCS: 36415; 80048; 80053; 80069; 81001; 82010; 82803; 82947; 83036; 83605; 83735; 85025; 96361; 96365; 96367; 96368; 99285-25; A9270; J1650; J1815; J2543; J3370; J3480; J7030; J7050; J7060; J7120

== ENCOUNTER 2022-03-04 14:45 | Emergency (ER) | payer OTHER ==
[~2022-03-04] VITALS: Ht 182.9 cm; Wt 83.5 kg
[~2022-03-04 14:45] MED LIST changes: +BACITRACIN ZIN1 EAC1 TOP; +BASAGLAR K100 UNIT/3 SC; +TRAM50 PO; +VISBIOME 112.51 EACH PO
[2022-03-04] MEDS ORDERED: CEPH500 PO (16:43)
[2022-03-04] MEDS ORDERED: Bactrim Ds Tab1 EACH PO (16:43)
== END 2022-03-04 17:06 | disposition home or self-care (01) ==
LOC: ER 14:45
DX: L02.11 Cutaneous abscess of neck (principal); E10.9 Type 1 diabetes mellitus without complications; Z87.891 Personal history of nicotine dependence; Z79.4 Long term (current) use of insulin
CPT/HCPCS: A9270

== ENCOUNTER 2022-09-19 16:11 | Emergency (ER) | payer OTHER ==
[~2022-09-19] VITALS: Ht 182.9 cm; Wt 83.9 kg
[~2022-09-19 16:11] MED LIST changes: +Bactrim Ds Tab1 EACH PO; +CEPH500 PO; +LEVFLO500 PO
[2022-09-19 16:29] VITALS: BP 169/99
== END 2022-09-19 18:06 | disposition home or self-care (01) ==
LOC: ER 16:11
DX: S00.431A Contusion of right ear, initial encounter (principal); W22.8XXA Striking against or struck by other objects, initial encounter; Y99.0 Civilian activity done for income or pay; Z79.4 Long term (current) use of insulin; E10.40 Type 1 diabetes mellitus with diabetic neuropathy, unspecified; Z87.891 Personal history of nicotine dependence
CPT/HCPCS: 69000; 99282-25

== ENCOUNTER 2022-09-26 15:22 | Emergency (ER) | payer OTHER ==
[~2022-09-26] VITALS: Ht 182.9 cm; Wt 83.9 kg
[2022-09-26 15:45] VITALS: BP 128/92
== END 2022-09-26 17:12 | disposition home or self-care (01) ==
LOC: ER 15:22
DX: H61.121 Hematoma of pinna, right ear (principal); E10.40 Type 1 diabetes mellitus with diabetic neuropathy, unspecified; Z79.4 Long term (current) use of insulin; Z87.891 Personal history of nicotine dependence
CPT/HCPCS: 69005; 99282-25

== ENCOUNTER 2022-09-29 17:35 | Emergency (ER) | payer OTHER ==
[~2022-09-29] VITALS: Ht 182.9 cm; Wt 83.9 kg
[2022-09-29 17:44] VITALS: BP 131/109
[2022-09-29] MEDS ORDERED: HUMALOG KW100 UNIT/1 (18:56)
== END 2022-09-29 20:43 | disposition home or self-care (01) ==
LOC: ER 17:35
DX: S00.431A Contusion of right ear, initial encounter (principal); E10.9 Type 1 diabetes mellitus without complications; W22.8XXA Striking against or struck by other objects, initial encounter; Z87.891 Personal history of nicotine dependence; Z79.4 Long term (current) use of insulin
CPT/HCPCS: 10160; 99282-25

== ENCOUNTER 2022-12-03 11:57 | Emergency (ER) | payer OTHER ==
[~2022-12-03] VITALS: Ht 182.9 cm; Wt 81.7 kg
[~2022-12-03 11:57] MED LIST changes: +HUMALOG KW100 UNIT/1
[2022-12-03 13:22] VITALS: BP 168/90
[2022-12-03] MEDS ORDERED: CEPH500 PO (14:42)
[2022-12-03] MEDS ORDERED: Mupirocin22 GM TOP (14:42)
== END 2022-12-03 15:55 | disposition home or self-care (01) ==
LOC: ER 11:57
DX: L01.00 Impetigo, unspecified (principal); E10.9 Type 1 diabetes mellitus without complications; Z87.891 Personal history of nicotine dependence; Z79.4 Long term (current) use of insulin
CPT/HCPCS: 99282; A9270

== ENCOUNTER 2023-01-11 13:34 | Inpatient (IN) | payer OTHER ==
[2023-01-11] VITALS (8 sets, daily range): BP systolic 132–153; BP diastolic 66–87
[~2023-01-11] VITALS: Ht 188 cm; Wt 76.4 kg
[~2023-01-11 13:34] MED LIST changes: +Mupirocin22 GM TOP
[2023-01-11 13:50] LABS: Calcium, Ionized (POC) 1.07 mmol/L (1.10-1.46); Chloride (POC) 94 mmol/L (98-108); Creatinine (POC) 1.9 mg/dL (0.8-1.3); Glucose (ISTAT POC) >700 mg/dL (70-99); Hemoglobin (POC) 12.6 g/dL (13.5-17.5); Potassium (POC) 8.1 mmol/L (3.5-5.5); Sodium (POC) 117 mmol/L (135-148); Total CO2 (POC) 5 mmol/L (21-32)
[2023-01-11 14:21] LABS: Hematocrit 38.1 % (37.0-53.0); Hemoglobin 11.4 g/dL (13.5-17.5); Mean Corpuscular HGB 30.3 pg (26.0-34.0); Mean Corpuscular HGB Conc 29.9 g/dL (31.5-36.5); Mean Corpuscular Volume 101 fL (80-100); Platelet Count 547 K/mm3 (150-400); RDW Coefficient Variation 12.3 % (11.7-14.2); RDW Standard Deviation 46.3 fL (35.1-46.3); Red Blood Cell Count 3.76 M/mm3 (4.30-5.90); White Blood Cell Count 34.24 K/mm3 (4.00-11.30)
[2023-01-11 14:22] LABS: Base Excess Venous -32.3 mmol/L; Bicarbonate Venous 4.5 mmol/L (24.0-30.0); PCO2 Venous 12.5 mmHg (38-42); pH Blood Venous 6.81 (7.34-7.37)
[2023-01-11 14:44] LABS: Magnesium, Blood 3.2 mg/dL (1.6-2.4)
[2023-01-11 14:51] LABS: Alanine Aminotransfer (ALT/SGP 71 U/L (12-78); Albumin, Blood 2.7 g/dL (3.4-5.0); Albumin/Globulin Ratio 0.7 (0.8-1.8); Alk Phos 169 U/L (50-136); Anion Gap Unable to Calculate mmol/L (6-16); Aspartate Aminotrans (AST/SGOT 60 U/L (12-37); Bilirubin, Total 0.6 mg/dL (0.1-1.0); Blood Urea Nitrogen 46 mg/dL (8-24); Bun/Creatinine Ratio 24.2 (12.0-20.0); CO2, Blood <1 mmol/L (21-32); Chloride, Blood 84 mmol/L (98-108); Globulin, Blood 3.7 g/dL (2.2-4.0); Glomerular Filtration Rate 47 (60-); Glucose, Blood 1310 mg/dL (70-99); Potassium, Blood 8.1 mmol/L (3.5-5.5); Sodium, Blood 120 mmol/L (136-145); Total Protein, Blood 6.4 g/dL (6.4-8.2)
[2023-01-11 14:53] LABS: BAND PERCENT MAN 12 % (0-8); BASOPHILS PERCENT MAN 0 % (0-2); EOSINOPHILS ABSOLUTE MAN 0.34 K/mm3 (0.00-0.68); EOSINOPHILS PERCENT MAN 1 % (0-6); LYMPHOCYTES ABSOLUTE MAN 4.79 K/mm3 (0.84-5.20); LYMPHOCYTES PERCENT MAN 14 % (21-46); MONOCYTES ABSOLUTE MAN 2.73 K/mm3 (0.16-1.47); MONOCYTES PERCENT MAN 8 % (4-13); MYELOCYTE ABSOLUTE MAN 0.34 K/mm3 (0.00-0.00); MYELOCYTE PERCENT MAN 1 % (0-0); NEUTROPHILS ABSOLUTE MAN 26.02 K/mm3 (1.96-9.15); SEG NEUTROPHILS PERCENT MAN 64 % (41-73); TOTAL CELLS COUNTED 100
[2023-01-11] MEDS ORDERED: INSULIN LI100 UNIT/6 SC (14:56)
[2023-01-11 14:58] LABS: Beta-hydroxybutyrate >138.0 mg/dL (0.2-2.8)
[2023-01-11] MEDS ORDERED: INSULANI SC (15:04)
[2023-01-11 15:42] LABS: Bun/Creatinine Ratio 25.1 (12.0-20.0); Calcium, Blood 8.2 mg/dL (8.5-10.1); Creatinine, Blood 1.83 mg/dL (0.60-1.20); Potassium, Blood 7.1 mmol/L (3.5-5.5)
[2023-01-11 16:35] LABS: Glucose, Blood 1194 mg/dL (70-99)
[2023-01-11 17:19] LABS: Glucose, Blood 1066 mg/dL (70-99)
--- NOTE | 2023-01-11 17:40 | NUR ---
ADMIT / SUMMARY PT ARRIVED TO ICU 2 AT 1700 VIA ER BED. PT IS LETHARGIC, BUT AROUSEABLE TO VERBAL STIMULI. PT ANSWERS SIMPLE QUESTIONS WITH SHORT ONE WORD ANSWERS. PT ABLE TO SQUEEZE HANDS UPON COMMAND. PT WEAK WITH MOVEMENT. VITAL SIGNS STABLE WITH PT ON ROOM AIR. BICARB GTT INFUSING AT 200 ML/HR AND INSULIN GTT AT 12 UNITS/HR. NO FAMILY AT BEDSIDE. WILL CONTINUE TO MONITOR AND REPORT OFF TO ONCOMING RN.
[2023-01-11 18:19] LABS: Glucose, Blood 1057 mg/dL (70-99)
[2023-01-11 18:56] LABS: U Amphetamine Screen DETECTED; U Barbituate Screen Not Detected; U Benzodiazapine Screen Not Detected; U Buprenorphine Screen Not Detected; U Cannabinoids Screen Not Detected; U Cocaine Screen Not Detected; U Methadone Screen Not Detected; U Methamphetamine Screen DETECTED; U Opiates Screen Not Detected; U Oxycodone Screen Not Detected; U Phencyclidine Screen Not Detected; U Propoxyphene Screen Not Detected
--- NOTE | 2023-01-11 19:00 | NUR ---
ASSUME CARE: I have assumed care of this patient.
[2023-01-11 19:22] LABS: Bun/Creatinine Ratio 25.4 (12.0-20.0); Calcium, Blood 8.4 mg/dL (8.5-10.1); Creatinine, Blood 1.81 mg/dL (0.60-1.20); Glucose, Blood 925 mg/dL (70-99); Phosphorus, Blood 7.4 mg/dL (2.5-4.9); Potassium, Blood 4.7 mmol/L (3.5-5.5)
--- NOTE | 2023-01-11 20:30 | NUR ---
PROVIDER PHONE CALL: Pt complaining of "something blocking my airway". He is wretching and vomiting, however RN and conveyor line battery charger able to visualize a haroon sized swollen ball in back of pt's throat. It appears to be his uvula and deviated to left, however it is very difficult to visualize at this time. Pt become very anxious when reclined back and states he cannot breathe. Dr Stewart notified. Telephone order for unasyn.
[2023-01-11 20:43] LABS: Glucose, Blood 811 mg/dL (70-99)
--- NOTE | 2023-01-11 21:15 | NUR ---
FAMILY UPDATE: Pt's father updated on pt status.
[2023-01-11 21:26] LABS: Glucose, Blood 667 mg/dL (70-99)
[2023-01-11 22:22] LABS: Glucose, Blood 559 mg/dL (70-99)
[2023-01-12] VITALS (19 sets, daily range): BP systolic 106–182; BP diastolic 62–109
[2023-01-12 01:07] LABS: Bun/Creatinine Ratio 26.7 (12.0-20.0); Calcium, Blood 7.4 mg/dL (8.5-10.1); Creatinine, Blood 1.35 mg/dL (0.60-1.20); Potassium, Blood 3.6 mmol/L (3.5-5.5)
[2023-01-12 01:09] LABS: Phosphorus, Blood 2.2 mg/dL (2.5-4.9)
--- NOTE | 2023-01-12 02:59 | NUR ---
PROVIDER PHONE CALL: Dr Fraga notifed of current CBG and lab values. See new orders.
[2023-01-12 05:02] LABS: Albumin, Blood 2.4 g/dL (3.4-5.0); Albumin/Globulin Ratio 0.8 (0.8-1.8); Bilirubin, Total 0.3 mg/dL (0.1-1.0); Bun/Creatinine Ratio 26.2 (12.0-20.0); Calcium, Blood 7.9 mg/dL (8.5-10.1); Creatinine, Blood 1.22 mg/dL (0.60-1.20); Magnesium, Blood 2.2 mg/dL (1.6-2.4); Phosphorus, Blood 2.6 mg/dL (2.5-4.9); Potassium, Blood 3.6 mmol/L (3.5-5.5); Total Protein, Blood 5.4 g/dL (6.4-8.2)
--- NOTE | 2023-01-12 05:19 | NUR ---
SHIFT SUMMARY: Pt transitioned from bicarb to D5 1/2 NS. KCl infusing. Unasyn started. He is voiding spontaneously with urinal and had two BMs overnight. Pt still confused and asking when he can leave.
[2023-01-12 08:09] LABS: Calcium, Blood 7.9 mg/dL (8.5-10.1); Creatinine, Blood 1.16 mg/dL (0.60-1.20); Potassium, Blood 3.7 mmol/L (3.5-5.5)
--- NOTE | 2023-01-12 14:53 | NUR ---
TRANSFER TO 357 REPORT GIVEN VIA PHONE. ALL QUESTIONS ANSWERED. PT TAKEN TO ROOM 357 VIA BED. ALL PT BELONGINGS SENT WITH PT.
--- NOTE | 2023-01-12 17:49 | NUR ---
1415 TO MEDICAL FLOOR TRANSFER FROM ICU, PATIENT ALERT AND OREINTEDX4, AMBULATED WITH STAND BY ASSIST, GAIT UNSTEADY, PATIENT MAKES NEEDS KNOWN, BS 154, HTN [id number], STARTED ON COREG, BM TODAY, EASILY ROUSES AND INTERACTS APPROPRIATELY, CALL LIGHT WITH IN REACH, WILL RELAY TO PM RN
[2023-01-13] VITALS (7 sets, daily range): BP systolic 120–165; BP diastolic 62–101
--- NOTE | 2023-01-13 00:05 | NUR ---
PT'S BP HAS BEEN ELEVATED SINCE YESTERDAY AT 1200. PRN IV HYDRALAZINE ADMINISTERED. LAST BP AT 2334 WAS 168/109 AND HR 96BPM. PT DENIED ANY CHEST PAIN, NO SOB, NO SHEA. PT'S BEEN EXTREMELY SLEEPY UPON ARRIVAL FOR NOC SHIFT. PT C/O NAUSEA, PRN ZOFRAN GIVEN AND EFFECTIVE. D/T NAUSEA, PT HAS HAD POOR APPETITE. PT A&O x3, UNSURE ABOUT DAY/MONTH, ABLE TO MAKE NEEDS KNOWN. PT ADMITTED FOR DKA. PREVIOUS BLOOD SUGAR 151. CALL LIGHT WITHIN REACH, WCTM.
[2023-01-13] MEDS ORDERED: HUMALOG KW100 UNIT/1 SC (00:14)
[2023-01-13 04:57] LABS: BASOPHILS ABSOLUTE AUTO 0.07 K/mm3 (0.00-0.23); BASOPHILS PERCENT AUTO 1 % (0-2); EOSINOPHILS ABSOLUTE AUTO 0.07 K/mm3 (0.00-0.68); EOSINOPHILS PERCENT AUTO 1 % (0-6); Hematocrit 31.5 % (37.0-53.0); Hemoglobin 10.8 g/dL (13.5-17.5); IMMATURE GRAN ABSOLUTE AUTO 0.06 K/mm3 (0.00-0.10); IMMATURE GRAN PERCENT AUTO 0 % (0-1); LYMPHOCYTES ABSOLUTE AUTO 2.35 K/mm3 (0.84-5.20); LYMPHOCYTES PERCENT AUTO 17 % (21-46); MONOCYTES ABSOLUTE AUTO 1.23 K/mm3 (0.16-1.47); MONOCYTES PERCENT AUTO 9 % (4-13); Mean Corpuscular HGB 29.7 pg (26.0-34.0); Mean Corpuscular HGB Conc 34.3 g/dL (31.5-36.5); Mean Platelet Volume 10.4 fL (9.1-12.4); NEUTROPHILS ABSOLUTE AUTO 10.28 K/mm3 (1.96-9.15); NEUTROPHILS PERCENT AUTO 73 % (41-73); Platelet Count 306 K/mm3 (150-400); RDW Coefficient Variation 13.1 % (11.7-14.2); RDW Standard Deviation 41.1 fL (35.1-46.3); Red Blood Cell Count 3.64 M/mm3 (4.30-5.90); White Blood Cell Count 14.06 K/mm3 (4.00-11.30)
[2023-01-13 04:59] LABS: Mean Corpuscular Volume 87 fL (80-100)
[2023-01-13 05:48] LABS: Bun/Creatinine Ratio 13.5 (12.0-20.0); Calcium, Blood 8.2 mg/dL (8.5-10.1); Creatinine, Blood 0.89 mg/dL (0.60-1.20)
--- NOTE | 2023-01-13 18:50 | NUR ---
SHIFT SUMMARY A&O X 4, VSS. BG'S HAVE IMPROVED, HE STATES HE FEELS MUCH BETTER. IS EATING AND MYRA DIET. IV ANTIBIOTICS ORDERED PER EMAR GIVEN. MEDICATED ONCE WITH PRN HYDRALAZINE FOR BP 165/101. IS INDEPENDENT IN THE ROOM FOR RESTROOM USE. DOES CALL IF ASSISTANCE IS NEEDED. IS IN ISO FOR MRSA FOUND IN DRNG FROM THROAT ABCESS. IS PLEASANT & COOPERATIVE WITH ALL CARE. BED IS IN LOW POSITION, CALL LIGHT WITHIN REACH. PLAN IS DC HOME WHEN CLINICALLY READY.
[2023-01-14 04:58] LABS: BASOPHILS ABSOLUTE AUTO 0.04 K/mm3 (0.00-0.23); BASOPHILS PERCENT AUTO 1 % (0-2); EOSINOPHILS ABSOLUTE AUTO 0.24 K/mm3 (0.00-0.68); EOSINOPHILS PERCENT AUTO 3 % (0-6); Hematocrit 29.4 % (37.0-53.0); Hemoglobin 9.9 g/dL (13.5-17.5); IMMATURE GRAN ABSOLUTE AUTO 0.02 K/mm3 (0.00-0.10); IMMATURE GRAN PERCENT AUTO 0 % (0-1); LYMPHOCYTES ABSOLUTE AUTO 2.13 K/mm3 (0.84-5.20); LYMPHOCYTES PERCENT AUTO 30 % (21-46); MONOCYTES ABSOLUTE AUTO 0.71 K/mm3 (0.16-1.47); MONOCYTES PERCENT AUTO 10 % (4-13); Mean Corpuscular HGB 30.3 pg (26.0-34.0); Mean Corpuscular HGB Conc 33.7 g/dL (31.5-36.5); Mean Corpuscular Volume 90 fL (80-100); NEUTROPHILS ABSOLUTE AUTO 3.93 K/mm3 (1.96-9.15); NEUTROPHILS PERCENT AUTO 56 % (41-73); Platelet Count 226 K/mm3 (150-400); RDW Coefficient Variation 12.9 % (11.7-14.2); RDW Standard Deviation 42.7 fL (35.1-46.3); Red Blood Cell Count 3.27 M/mm3 (4.30-5.90); White Blood Cell Count 7.07 K/mm3 (4.00-11.30)
[2023-01-14 05:01] VITALS: BP 140/97
[2023-01-14 05:22] LABS: Bun/Creatinine Ratio 11.2 (12.0-20.0); Calcium, Blood 8.4 mg/dL (8.5-10.1); Creatinine, Blood 0.9 mg/dL (0.60-1.20); Potassium, Blood 3.5 mmol/L (3.5-5.5)
--- NOTE | 2023-01-14 06:50 | NUR ---
SHIFT SUMMARY PT SITTING UP IN BED DURING BEDSIDE REPORT, PT DENIES PAIN- STARTED VANCOMYCIN AT BEGINNING OF SHIFT WITHOUT PROBLEMS, PT UP TO SHOWER- REDRESSED LEFT AC IV- PT'S REPORTED THAT PT HAD SEVERE SHAKES AND APPEARED TO BE GOING IN TO SHOCK, VITALS OBTAINED, PT RUNNING LOW GRADE FEVER, APPLIED BLANKET AND CALL TO DR. HOUSE FOR TYLENOL- PT CALMED, CBG WNL-PT REQUESTED CBG BE DONE AND REQUESTED SNACK- CBG WNL - PT HAD MEAT AND CHEESE SNACK- PT SLEPT T/O NIGHT WITHOUT C/O- PT REPORTED IN AM THAT THE KNOT IN HIS THROAT HAS RESOLVED - NO PAIN- BED LOW POSITION, CALL LIGHT WITHIN REACH
[2023-01-14 07:48] VITALS: BP 157/104
[2023-01-14] MEDS ORDERED: CARV3.125 PO (14:03)
[2023-01-14] MEDS ORDERED: DOXY100 PO (14:03)
--- NOTE | 2023-01-14 14:18 | NUR ---
PT IS A&O, UP INDEPENDENTLY IN . ADMITTED FOR DKA; RESOLVED. DR HUYNH IN TO SEE PT AND DISCUSS PLAN OF CARE. PT WANTING TO GO HOME. D/C ORDERS PLACED. IV ABX GIVEN PRIOR TO D/C. MEDS FAXED TO [facility] PER PT REQUEST. IV SITES D/C'D WNL'S. PT ASSISTED OUT TO CAR VIA W/C BY NOMAN.
== END 2023-01-14 14:18 | disposition home or self-care (01) | DRG 638 ==
LOC: ER 13:34 → MEDS 15:35 → ICUE 15:35 → MEDS 01-12 14:21
PROVIDERS: Emergency Medicine; Family Medicine; ADMIT Internal Medicine
DX: E10.10 Type 1 diabetes mellitus with ketoacidosis without coma (principal); E87.0 Hyperosmolality and hypernatremia; N17.9 Acute kidney failure, unspecified; J39.0 Retropharyngeal and parapharyngeal abscess; T38.3X6A Underdosing of insulin and oral hypoglycemic [antidiabetic] drugs, initial encounter; B95.62 Methicillin resistant Staphylococcus aureus infection as the cause of diseases classified elsewhere; E87.5 Hyperkalemia; I10 Essential (primary) hypertension; E86.0 Dehydration; F15.90 Other stimulant use, unspecified, uncomplicated; E87.6 Hypokalemia; Z87.891 Personal history of nicotine dependence; Z79.4 Long term (current) use of insulin
CPT/HCPCS: 36415; 71045; 80047; 80048; 80053; 80202; 82010; 82550; 82803; 82947; 83735; 83930; 84100; 84484; 85014; 85025; 87070; 87075; 87077; 87147; 87186; 87205; 93005; 93010; 94644; 94664; 94760; 96365; 96367; 96375; 96376; 99291-25; A9270; C9113; J0295; J0360; J0612; J1650; J1815; J2405; J2765; J3370; J3480; J7030; J7042; J7050; J7070; J7120

== ENCOUNTER 2023-02-11 14:04 | Inpatient (IN) | payer OTHER ==
[2023-02-11] VITALS (32 sets, daily range): BP systolic 126–184; BP diastolic 65–103
[~2023-02-11] VITALS: Ht 182.9 cm; Wt 78.0 kg
[~2023-02-11 14:04] MED LIST changes: +CARV3.125 PO; +DOXY100 PO; +HUMALOG KW100 UNIT/1 SC; +INSULANI SC; +INSULIN LI100 UNIT/6 SC
[2023-02-11 14:25] LABS: Bicarbonate Venous 5.5 mmol/L (24.0-30.0); PCO2 Venous 12.9 mmHg (38-42)
[2023-02-11 14:26] LABS: Base Excess Venous -30.4 mmol/L
[2023-02-11 14:26] LABS: Hematocrit 37.2 % (37.0-53.0); Hemoglobin 11.8 g/dL (13.5-17.5); Mean Corpuscular HGB 30.7 pg (26.0-34.0); Mean Corpuscular HGB Conc 31.7 g/dL (31.5-36.5); Mean Corpuscular Volume 97 fL (80-100); Mean Platelet Volume 12.4 fL (9.1-12.4); Platelet Count 402 K/mm3 (150-400); RDW Standard Deviation 45.3 fL (35.1-46.3); Red Blood Cell Count 3.84 M/mm3 (4.30-5.90)
[2023-02-11 14:45] LABS: Calcium, Ionized (POC) 1.11 mmol/L (1.10-1.46); Chloride (POC) 100 mmol/L (98-108); Glucose (ISTAT POC) >700 mg/dL (70-99); Hemoglobin (POC) 12.6 g/dL (13.5-17.5); Potassium (POC) 8.9 mmol/L (3.5-5.5); Sodium (POC) 122 mmol/L (135-148); Total CO2 (POC) <5 mmol/L (21-32)
[2023-02-11 15:41] LABS: Alanine Aminotransfer (ALT/SGP 40 U/L (12-78); Albumin, Blood 2.8 g/dL (3.4-5.0); Albumin/Globulin Ratio 0.7 (0.8-1.8); Alk Phos 200 U/L (50-136); Anion Gap 35 mmol/L (6-16); Aspartate Aminotrans (AST/SGOT 29 U/L (12-37); Bilirubin, Total 0.6 mg/dL (0.1-1.0); Blood Urea Nitrogen 43 mg/dL (8-24); Bun/Creatinine Ratio 21.7 (12.0-20.0); CO2, Blood 2 mmol/L (21-32); Calcium, Blood 8.8 mg/dL (8.5-10.1); Chloride, Blood 90 mmol/L (98-108); Creatinine, Blood 1.98 mg/dL (0.60-1.20); Globulin, Blood 3.8 g/dL (2.2-4.0); Glomerular Filtration Rate 45 (60-); Glucose, Blood 1234 mg/dL (70-99); Potassium, Blood 7.6 mmol/L (3.5-5.5); Sodium, Blood 127 mmol/L (136-145); Total Protein, Blood 6.6 g/dL (6.4-8.2)
[2023-02-11 15:54] LABS: Beta-hydroxybutyrate >138.0 mg/dL (0.2-2.8)
[2023-02-11 16:11] LABS: BAND PERCENT MAN 12 % (0-8); BASOPHILS ABSOLUTE MAN 0.82 K/mm3 (0.00-0.23); BASOPHILS PERCENT MAN 3 % (0-2); EOSINOPHILS PERCENT MAN 0 % (0-6); LYMPHOCYTES ABSOLUTE MAN 3.56 K/mm3 (0.84-5.20); LYMPHOCYTES PERCENT MAN 13 % (21-46); MONOCYTES ABSOLUTE MAN 0.54 K/mm3 (0.16-1.47); MONOCYTES PERCENT MAN 2 % (4-13); NEUTROPHILS ABSOLUTE MAN 22.46 K/mm3 (1.96-9.15); SEG NEUTROPHILS PERCENT MAN 70 % (41-73); TOTAL CELLS COUNTED 100
[2023-02-11 16:53] LABS: Glucose, Blood 1223 mg/dL (70-99)
--- NOTE | 2023-02-11 18:04 | NUR ---
ADMISSION/SHIFT SUMMARY: PT ADMITTED TO ICU, ARRIVING AT APPROX 1610. PT IS SOMNOLENT, RESPONDS BRIEFLY TO LOUD VOICE/PRESSURE, WILL OCCASIONALLY ANSWER QUESTIONS BY NODDING/SHAKING HEAD OR W/ONE WORD. PT RESTS QUIETLY W/OCCASIONAL JERKING/SHAKING. INITIAL TEMPORAL TEMP WAS 96.2, MOST RECENT CHECK IS 97.3. RESPIRATIONS ARE EVEN, UNLABORED, DEEP. O2 SATS AT 100% ON RA. SIN TACH ON MONITOR W/RATE 110s, BP STABLE, REPEAT EKG COMPLETED PER ORDERS. PT WAS ABLE T COMMUNICATE NEED TO VOID, WAS ASSISTED W/URINAL. GLUCOSE LEVELS BEING CHECKED PER PROTOCOL, INSULIN AND IV FLUIDS INFUSING PER ORDERS. WILL CONTINUE TO MONITOR AND TREAT ACCORDINGLY UNTIL CHANGE OF SHIFT.
[2023-02-11 18:35] LABS: Glucose, Blood 1032 mg/dL (70-99)
[2023-02-11 19:47] LABS: Glucose, Blood 849 mg/dL (70-99)
[2023-02-11 20:21] LABS: Bun/Creatinine Ratio 23.2 (12.0-20.0); Calcium, Blood 8.8 mg/dL (8.5-10.1); Creatinine, Blood 1.77 mg/dL (0.60-1.20); Potassium, Blood 4.7 mmol/L (3.5-5.5)
[2023-02-11 21:27] LABS: Glucose, Blood 689 mg/dL (70-99)
[2023-02-11 22:35] LABS: Glucose, Blood 577 mg/dL (70-99)
[2023-02-12] VITALS (82 sets, daily range): BP systolic 109–202; BP diastolic 55–108
[2023-02-12 00:34] LABS: Bun/Creatinine Ratio 25.2 (12.0-20.0); Calcium, Blood 8.5 mg/dL (8.5-10.1); Creatinine, Blood 1.35 mg/dL (0.60-1.20)
[2023-02-12 04:56] LABS: Bun/Creatinine Ratio 24.4 (12.0-20.0); Calcium, Blood 8.3 mg/dL (8.5-10.1); Creatinine, Blood 1.19 mg/dL (0.60-1.20); Magnesium, Blood 2.6 mg/dL (1.6-2.4); Potassium, Blood 3.7 mmol/L (3.5-5.5)
[2023-02-12 05:24] LABS: BASOPHILS ABSOLUTE AUTO 0.09 K/mm3 (0.00-0.23); BASOPHILS PERCENT AUTO 0 % (0-2); EOSINOPHILS ABSOLUTE AUTO 0.01 K/mm3 (0.00-0.68); EOSINOPHILS PERCENT AUTO 0 % (0-6); Hematocrit 32.8 % (37.0-53.0); Hemoglobin 11.7 g/dL (13.5-17.5); IMMATURE GRAN ABSOLUTE AUTO 0.27 K/mm3 (0.00-0.10); IMMATURE GRAN PERCENT AUTO 1 % (0-1); LYMPHOCYTES ABSOLUTE AUTO 2.78 K/mm3 (0.84-5.20); LYMPHOCYTES PERCENT AUTO 14 % (21-46); MONOCYTES ABSOLUTE AUTO 1.76 K/mm3 (0.16-1.47); MONOCYTES PERCENT AUTO 9 % (4-13); Mean Corpuscular HGB Conc 35.7 g/dL (31.5-36.5); Mean Platelet Volume 11.5 fL (9.1-12.4); NEUTROPHILS ABSOLUTE AUTO 15.46 K/mm3 (1.96-9.15); NEUTROPHILS PERCENT AUTO 76 % (41-73); Platelet Count 347 K/mm3 (150-400); RDW Coefficient Variation 13.5 % (11.7-14.2); RDW Standard Deviation 42.1 fL (35.1-46.3); Red Blood Cell Count 3.77 M/mm3 (4.30-5.90); White Blood Cell Count 20.37 K/mm3 (4.00-11.30)
[2023-02-12 05:38] LABS: Mean Corpuscular Volume 87 fL (80-100)
--- NOTE | 2023-02-12 06:39 | NUR ---
SHIFT SUMMARY PT IS DROWSY, OPENS EYES TO VOICE, FOLLOWS COMMANDS, ABLE TO MAKE NEEDS KNOWN. ST, BP ELEVATED, MD NOTIFIED AND ORDER FOR PRN HYDRALIZINE RECEIVED. GIVEN WITH GOOD RELIEF. LUNGS CTA X ALL ESCAMILLA, O2 SAT 99-100% ON ROOM AIR. SMALL SIPS OF WATER GIVEN, PT NAUSEATED, MEDICATED WITH ZOFRAN PER MD ORDER WITH GOOD RELIEF. VOIDS USING THE URINAL WITH ASSISTANCE, GOOD URINE OUTPUT. SCATTERED BRUISING AND SCARS NOTED OVER ENTIRETY OF BODY. SUTURES TO RIGHT EAR, RIGHT EAR RED AND SWOLLEN. CHG BATH GIVEN AND BEDDING CHANGED. PT MOVES SELF IN BED FREQUENTLY. PIV X2 (RIGHT AND LEFT AC). BOTH FLUSH AND WITHDRAW BLOOD WELL. POTASSIUM ON AM LABS 3.7, REPLACEMENT ORDERED AND STARTED. INSULIN DRIP TITRATED TO DECREASE BG WITH GOAL < 200. ORDER RECEIVED TO CHANGE IVF WHEN BG AT GOAL. FATHER GIVEN UPDATE VIA PHONE WITH PT'S PERMISSION. NO FAMILY AT BEDSIDE. POC ONGOING.
--- NOTE | 2023-02-12 08:00 | NUR ---
INITIAL ASSESSMENT PATIENT SLEEPING SOUNDLY UPON ENTERING ROOM. PATIENT LETHARGIC. PATIENT ORIENTED X 4. SPEECH MUMBLED. PATIENT WEAK BUT ABLE TO MOVES SELF AROUND IN BED EASILY. PATIENT SATTING 90% AND GREATER ON RA. LUNGS CLEAR THROUGHOUT. PATIENT IN ST, HR 1-TEENS TO 120S. SBP 150S TO 170S. TRACE EDEMA NOTED TO BLES. PATIENT TOLERATING ICE CHIPS AND WATER WELL AT THIS TIME. PATIENT DENIES NAUSEA. DATE OF LAST BM UNKNOWN. WNL. PATIENT NEEDS ASSISTANCE WITH URINAL. SCATTERED SCABS AND BRUISES NOTED. COCCYX REDDENED. R EAR SWOLLEN, RED AND HAS THICK PUS EXITING THE BACK. PATIENT ON D5 1/2 NS AT 200 MLS/ HOUR AND INSULIN DRIP AT 2.5 UNITS/ HOUR. PATIENT DENIES PAIN. BED LOW, CALL LIGHT IN REACH. CARE CONTINUES.
--- NOTE | 2023-02-12 09:00 | NUR ---
DR. KIM AND DR. CARLISLE UPDATED ON PATIENT STATUS. INFORMED THAT PATIENT HYPERTENSIVE AND THAT RECREATION COUNSELOR RN STATED PATIENT REPORT THAT SBP IN THE 190S IS NORMAL FOR HIM.
[2023-02-12 10:46] LABS: Bun/Creatinine Ratio 23.8 (12.0-20.0); Calcium, Blood 8.1 mg/dL (8.5-10.1); Creatinine, Blood 1.01 mg/dL (0.60-1.20); Potassium, Blood 3.8 mmol/L (3.5-5.5)
--- NOTE | 2023-02-12 12:00 | NUR ---
PATIENT AFEBRILE. HR IN THE LOW 100S. SBP IN THE 150S. INSULIN DRIP AT 6 UNITS/ HOUR. NO OTHER ACUTE CHANGES TO NOTE ON AT THIS TIME. CARE CONTINUES.
--- NOTE | 2023-02-12 16:05 | NUR ---
PATIENT HAS TEMP OF 99.1 DEGREES FAHRENHEIT. PATIENT STILL LETHARGIC BUT LESS SO THAN THIS AM. HR IN THE LOW 100S. SBP 160S TO 170S. PRN HYDRALAZINE GIVEN. INSULIN DRIP AT 7 UNITS/ HOUR. NO COMPLAINTS OF PAIN. NO OTHER ACUTE CHANGES TO NOTE ON AT THIS TIME. CARE CONTINUES.
--- NOTE | 2023-02-12 18:02 | NUR ---
SHIFT SUMMARY PATIENT REMAINED LETHARGIC AND SLEPT MOST OF SHIFT. PATIENT REMAINED ORIENTED X 4. PATIENT HAD NO COMPLAINTS OF PAIN THIS SHIFT. PATIENT REMAINED CALM, COOPERATIVE AND WITH FLAT AFFECT. PATIENT HAD TMAX OF 99.1 DEGREES FAHRENHEIT. PATIENT REPOSITIONED SELF IN BED FREQUENTLY THROUGHOUT SHIFT. PATIENT REMAINED SATTING 90% AND GREATER ON RA. LUNGS REMAINED CLEAR. PATIENT REMAINED IN ST, HR LOW 100S TO 120S. SBP LOW 100S TO 180S. PRN HYDRALAZINE AND LABETALOL GIVEN THIS SHIFT FOR HTN. NO BM THIS SHIFT. PATIENT TRANSITIONED FROM INSULIN DRIP TO LONG ACTING AND VINCE INSULIN. PATIENT STARTED ON ADA DIET AND HAS BEEN TOLERATING WELL BUT NOT MUCH APPETITE. PATIENT HAD COMPLAINTS OF NAUSEA OT THIS SHIFT AND WAS GIVEN PRN ZOFRAN. PATIENT URINATED 1400 MLS OF YELLOW COLORED URINE THIS SHIFT. WOUND CULTURE FROM EAR PUS SENT TO LAB THIS SHIFT. NO CHANGES TO SKIN NOTED. INSULIN DRIP AND FLUIDS DC'D 1 HOUR AFTER LONG ACTING INSULIN GIVEN. BLOOD SUGARS RANGED FROM 203 TO 307. PATIENT RECEIVED 40 MEQ KCL THIS AM. HEAD/ NECK CT PERFORMED THIS SHIFT. PATIENT HAS NO COMPLAINTS AT THIS TIME. BED LOW, CALL LIGHT IN REACH. REPORT WILL BE GIVEN TO ASSUMING NEGOTIATIONS DIRECTOR NURSE SHORTLY.
[2023-02-12 19:14] LABS: Albumin, Blood 2.3 g/dL (3.4-5.0); Anion Gap 5 mmol/L (6-16); Blood Urea Nitrogen 18 mg/dL (8-24); Bun/Creatinine Ratio 20.8 (12.0-20.0); CO2, Blood 28 mmol/L (21-32); Calcium, Blood 7.8 mg/dL (8.5-10.1); Chloride, Blood 114 mmol/L (98-108); Creatinine, Blood 0.87 mg/dL (0.60-1.20); Glomerular Filtration Rate 117 (60-); Glucose, Blood 171 mg/dL (70-99); Phosphorus, Blood 1.7 mg/dL (2.5-4.9); Potassium, Blood 3.1 mmol/L (3.5-5.5); Sodium, Blood 147 mmol/L (136-145)
[2023-02-13] VITALS (24 sets, daily range): BP systolic 147–173; BP diastolic 75–109
--- NOTE | 2023-02-13 06:48 | NUR ---
SHIFT SUMMARY: NO ACUTE CHANGES OVERNIGHT; PT REMAINS A&O X 4, FLAT AFFECT BUT POLITE AND COOPERATIVE WITH CARE. THE SHIFT PROGRESSED PT VERBALIZES FEELING BETTER AND REGAINING STRENGTH SINCE ADMISSION. PT UP TO BEDSIDE COMMODE AT START OF SHIFT AND STEADY ON FEET, REPORTS SLIGHT DIZZINESS GETTING UP OUT OF BED. PT HAS LARGE BOWEL MOVEMENT THIS SHIFT. PT USING URINAL IN BED INDEPENDENTLY; 350 URINE OUTPUT THIS MORNING. PT INDEPENDENT WITH BED MOBILITY THROUGHOUT THE SHIFT. SR ON MONITOR WITH HR 90'S AND SBP 160'S; PT MEDICATED ONCE WITH HYDRALAZINE FOR SBP IN THE 170'S. PT DENIES CHEST PAIN/PRESSURE OR SOB THROUGHOUT THE SHIFT. PT REMAINS ON RA WITH SPO2 97<; LUNG CLEAR THROUGHOUT. PT HAD GOOD FLUID INTAKE THROUGHOUT THE SHIFT BUT REMAINS DECREASE APPETITE WITH FOOD. PT OFFERED BED BATH AT START OF SHIFT AND ORAL CARE BUT PT DENIED AT THIS TIME AND STATED HE WOULD TRY IN THE MORNING. WILL REPORT OFF TO ONCOMING RN.
[2023-02-13 07:21] LABS: BASOPHILS PERCENT AUTO 1 % (0-2); EOSINOPHILS PERCENT AUTO 1 % (0-6); Hematocrit 30.4 % (37.0-53.0); Hemoglobin 10.4 g/dL (13.5-17.5); IMMATURE GRAN ABSOLUTE AUTO 0.06 K/mm3 (0.00-0.10); IMMATURE GRAN PERCENT AUTO 0 % (0-1); LYMPHOCYTES ABSOLUTE AUTO 3.59 K/mm3 (0.84-5.20); LYMPHOCYTES PERCENT AUTO 26 % (21-46); MONOCYTES ABSOLUTE AUTO 1.08 K/mm3 (0.16-1.47); MONOCYTES PERCENT AUTO 8 % (4-13); Mean Corpuscular HGB 30.6 pg (26.0-34.0); Mean Corpuscular HGB Conc 34.2 g/dL (31.5-36.5); Mean Corpuscular Volume 89 fL (80-100); Mean Platelet Volume 10.9 fL (9.1-12.4); NEUTROPHILS ABSOLUTE AUTO 8.72 K/mm3 (1.96-9.15); NEUTROPHILS PERCENT AUTO 64 % (41-73); Platelet Count 243 K/mm3 (150-400); RDW Coefficient Variation 14.2 % (11.7-14.2); RDW Standard Deviation 46.5 fL (35.1-46.3); White Blood Cell Count 13.65 K/mm3 (4.00-11.30)
[2023-02-13 07:40] LABS: Bun/Creatinine Ratio 17.3 (12.0-20.0); Calcium, Blood 8.1 mg/dL (8.5-10.1); Creatinine, Blood 0.69 mg/dL (0.60-1.20); Potassium, Blood 3.3 mmol/L (3.5-5.5)
--- NOTE | 2023-02-13 08:30 | NUR ---
INITIAL ASSESSMENT PATIENT ALERT AND ORIENTED X 4, AFEBRILE. PATIENT DROWSY BUT WAKES EASILY WHEN SLEEPING. PATIENT WEAK BUT REPOSITIONS SELF WELL IN BED. PATIENT AFEBRILE. PATIENT HAS NO COMPLAINTS OF PAIN AT THIS TIME. PATIENT SATTING 90% AND GREATER ON RA. LUNGS CLEAR THROUGHOUT. PATIENT IN ST, HR IN THE LOW 100S. SBP 150S TO 160S. TRACE EDEMA NOTED TO BLES. PATIENT HAS LITTLE APPETITE BUT IS TOLERATING FOOD WELL. PATIENT DRINKING GOOD AMOUNTS OF WATER. WNL. SUTURES IN R EAR REMOVED AND PUS DRAINED MUCH POSSIBLE PER DR. TONY; MINIMAL AMOUNT ABLE TO BE DRAINED. SCATTERED SCABS, BRUISES AND SCARS NOTED. COCCYX REDDENED. BLOOD SUGAR 208 THIS AM; COVERAGE ADMINISTERED. BED LOW, CALL LIGHT IN REACH. CARE CONTINUES.
--- NOTE | 2023-02-13 11:30 | NUR ---
PATIENT REMAINS AFEBRILE. NO COMPLAINTS OF PAIN. HR IN THE LOW 100S. SBP IN THE 140S. BLOOD SUGAR 284; COVERAGE GIVEN. NO ACUTE CHANGES TO NOTE ON AT THIS TIME. CARE CONTINUES.
[2023-02-13] MEDS ORDERED: LISI20 PO (13:32)
[2023-02-13] MEDS ORDERED: VISBIOME 112.51 EACH PO (13:43)
[2023-02-13] MEDS ORDERED: AMOX-CLAV 500-1 EAC1 PO (13:46)
--- NOTE | 2023-02-13 16:00 | NUR ---
SHIFT SUMMARY PATIENT REMAINED ALERT AND ORIENTED X 4. PATIENT HAD NO COMPLAINTS OF PAIN. PATIENT REMAINED AFEBRILE. PATIENT REMAINED WEAK BUT ABLE TO AMBULATE IN ROOM. PATIENT REMAINED SATTING 90% AND GREATER ON RA. PATIENT REMAINED SR TO ST, HR 90S TO LOW 100S. SBP 140S TO 170S. NO BM THIS SHIFT. PATIENT HAD IMPROVED APPETITE THIS SHIFT. BLOOD SUGARS 208 AND 284 THIS SHIFT. PATIENT HAD GOOD URINE OUTPUT. SUTURES REMOVED FROM R EAR AND SMALL AMOUNT OF THICK PUS ABLE TO BE SQUEEZED OUT OF FRONT AND BACK OF EAR. NO OTHER CHANGES TO SKIN NOTED. PATIENT REPOSITIONED SELF FREQUENTLY IN BED. PATIENT RECEIVED 30 MM KPHOS REPLACEMENT THIS AM. PATIENT RECEIVED FLU VACCINE; OKAY TO GIVE PER DR. KIM. WENT OVER DISCHARGE INFORMATION AND EDUCATION WITH PATIENT. PATIENT HAD NO FURTHER QUESTIONS. PATIENT DISCHARGED AND TAKEN OUT IN WHEELCHAIR BY WHEAT GROWER TO FATHER'S CAR. BELONGINGS, CLOTHES AND CELL PHONE, TAKEN WITH PATIENT. DISCHARGE COMPLETE.
== END 2023-02-13 16:00 | disposition home or self-care (01) | DRG 637 ==
LOC: ER 14:04 → ICUE 15:45
PROVIDERS: Emergency Medicine; Family Medicine; ADMIT Internal Medicine
DX: E10.10 Type 1 diabetes mellitus with ketoacidosis without coma (principal); G93.41 Metabolic encephalopathy; R65.11 Systemic inflammatory response syndrome (SIRS) of non-infectious origin with acute organ dysfunction; E87.1 Hypo-osmolality and hyponatremia; N17.9 Acute kidney failure, unspecified; E87.8 Other disorders of electrolyte and fluid balance, not elsewhere classified; H93.8X1 Other specified disorders of right ear; R79.89 Other specified abnormal findings of blood chemistry; E10.40 Type 1 diabetes mellitus with diabetic neuropathy, unspecified; E87.5 Hyperkalemia; D69.6 Thrombocytopenia, unspecified; E86.9 Volume depletion, unspecified; D63.8 Anemia in other chronic diseases classified elsewhere; Z91.148 Patient's other noncompliance with medication regimen for other reason; Z98.890 Other specified postprocedural states; Z79.4 Long term (current) use of insulin; Z86.19 Personal history of other infectious and parasitic diseases; Z79.2 Long term (current) use of antibiotics; Z79.899 Other long term (current) drug therapy; Z90.89 Acquired absence of other organs; Z87.891 Personal history of nicotine dependence
CPT/HCPCS: 36415; 36416; 70470; 70491; 71045; 80047; 80048; 80053; 80069; 82010; 82803; 82947; 83735; 85014; 85025; 87040; 87070; 87075; 87147; 87205; 93005; 93010; 96361; 96374; 99285-25; A9270; J0360; J0612; J1650; J1815; J2405; J3480; J7030; J7042; J7050; J7060; Q2036; Q9967

== ENCOUNTER 2023-03-16 02:27 | Inpatient (IN) | payer OTHER ==
[2023-03-16] VITALS (16 sets, daily range): BP systolic 135–174; BP diastolic 67–115
[~2023-03-16] VITALS: Ht 182.9 cm; Wt 70.6 kg
[~2023-03-16 02:27] MED LIST changes: +AMOX-CLAV 500-1 EAC1 PO; +LISI20 PO
[2023-03-16 02:39] LABS: Source, Urine Clean Catch
[2023-03-16 02:43] LABS: BASOPHILS ABSOLUTE AUTO 0.11 K/mm3 (0.00-0.23); BASOPHILS PERCENT AUTO 1 % (0-2); EOSINOPHILS ABSOLUTE AUTO 0.01 K/mm3 (0.00-0.68); EOSINOPHILS PERCENT AUTO 0 % (0-6); Hematocrit 33.8 % (37.0-53.0); Hemoglobin 11.3 g/dL (13.5-17.5); IMMATURE GRAN ABSOLUTE AUTO 0.12 K/mm3 (0.00-0.10); IMMATURE GRAN PERCENT AUTO 1 % (0-1); LYMPHOCYTES ABSOLUTE AUTO 1.88 K/mm3 (0.84-5.20); LYMPHOCYTES PERCENT AUTO 14 % (21-46); MONOCYTES ABSOLUTE AUTO 0.65 K/mm3 (0.16-1.47); MONOCYTES PERCENT AUTO 5 % (4-13); Mean Corpuscular HGB 31.5 pg (26.0-34.0); Mean Corpuscular HGB Conc 33.4 g/dL (31.5-36.5); Mean Corpuscular Volume 94 fL (80-100); Mean Platelet Volume 10.5 fL (9.1-12.4); NEUTROPHILS ABSOLUTE AUTO 11.11 K/mm3 (1.96-9.15); NEUTROPHILS PERCENT AUTO 80 % (41-73); Platelet Count 386 K/mm3 (150-400); RDW Coefficient Variation 13.6 % (11.7-14.2); RDW Standard Deviation 47.2 fL (35.1-46.3); Red Blood Cell Count 3.59 M/mm3 (4.30-5.90); White Blood Cell Count 13.88 K/mm3 (4.00-11.30)
[2023-03-16 02:44] LABS: Bilirubin, Urine Neg (Neg); Blood, Urine Neg (Neg); Glucose Qualitative, Urine 4+ (Neg); Ketones, Urine 4+ (Neg); Leukocyte Esterase, Urine Neg (Neg); Nitrite, Urine Neg (Neg); Protein, Urine 2+ (Neg); Urobilinogen, Urine NORM (Normal)
[2023-03-16 02:46] LABS: Appearance, Urine Clear (Clear); Color, Urine Pale Yellow (P-Yellow)
[2023-03-16 02:46] LABS: Base Excess Venous -24.5 mmol/L; Bicarbonate Venous 8.4 mmol/L (24.0-30.0); PCO2 Venous 18.6 mmHg (38-42)
[2023-03-16 02:48] LABS: pH Blood Venous 7.08 (7.34-7.37)
[2023-03-16 02:56] LABS: Bacteria Not Seen /hpf; Red Blood Cells, Urine Not Seen /hpf (0-2); Squamous Epithelial Cells Not Seen /hpf (Few); White Blood Cells, Urine Not Seen /hpf (0-5)
[2023-03-16 03:18] LABS: Albumin, Blood 2.7 g/dL (3.4-5.0); Albumin/Globulin Ratio 0.7 (0.8-1.8); Bilirubin, Total 0.5 mg/dL (0.1-1.0); Bun/Creatinine Ratio 33.3 (12.0-20.0); Calcium, Blood 8.2 mg/dL (8.5-10.1); Creatinine, Blood 1.11 mg/dL (0.60-1.20); Globulin, Blood 3.7 g/dL (2.2-4.0); Potassium, Blood 5.1 mmol/L (3.5-5.5); Total Protein, Blood 6.4 g/dL (6.4-8.2)
[2023-03-16 03:39] LABS: Beta-hydroxybutyrate 123.1 mg/dL (0.2-2.8)
[2023-03-16 04:07] LABS: Magnesium, Blood 2.6 mg/dL (1.6-2.4); Phosphorus, Blood 4.8 mg/dL (2.5-4.9)
[2023-03-16 04:52] LABS: Calcium, Blood 7.9 mg/dL (8.5-10.1); Creatinine, Blood 1.06 mg/dL (0.60-1.20); Potassium, Blood 4.9 mmol/L (3.5-5.5)
--- NOTE | 2023-03-16 06:12 | NUR ---
ASSUMED CARE AT 0440 ASSUMED CARE, TRASNFERRED FROM STRETCHER TO BED, INSULIN GTT INFUSING AT 8U/HR, AND [id number] INFUSING AT 250. PT STATED ALLERGIC TO POTASSIUM AND GETS ITCHY, ALLERGIES UPDATE, DR LÓPEZ MADE AWARE, FLUIDS TO BE STOPPED WHEN BICARB STARTED. DR LÓPEZ CAME TO ASSESS ABSCESS TO LOWER ABDO.
--- NOTE | 2023-03-16 06:41 | NUR ---
PT REMAINS ASLEEP, RESPS APPEAR EASY AND UNLABOURED. LAST GLUCOSE 213, NO CHANGES TO INSULIN. UNABLE TO DO ADMISSION HISTORY PT NOT WANTING TO COOPERATE WITH ASSESSMENT/TOO DROWSY.
--- NOTE | 2023-03-16 07:30 | NUR ---
SHIFT ASSESSMENT ASSUMED CARE OF PT, BEDSIDE REPORT RECEIVED. PT A&OX4, DROWSY, QUICKLY BACK TO SLEEP WITH DECREASED STIMULI. FOLLOWING ALL COMMANDS, STRONG. INSULIN GTT INFUSING @ 3U/HR c Q1HR CBG'S. ST ON THE DESKTOP PUBLISHING ASSOCIATE. ON RA. C/O MILD PAIN WITH TO ABSESS ON GROIN, ABSESS CLOSED. NO OTHER COMPLAINTS.
[2023-03-16 09:57] LABS: Bun/Creatinine Ratio 29.1 (12.0-20.0); Calcium, Blood 8.2 mg/dL (8.5-10.1); Creatinine, Blood 0.86 mg/dL (0.60-1.20); Potassium, Blood 3.5 mmol/L (3.5-5.5)
[2023-03-16 13:41] LABS: Bun/Creatinine Ratio 28.2 (12.0-20.0); Calcium, Blood 8.1 mg/dL (8.5-10.1); Creatinine, Blood 0.78 mg/dL (0.60-1.20); Potassium, Blood 4.1 mmol/L (3.5-5.5)
[2023-03-16 16:10] LABS: Creatinine, Blood 0.78 mg/dL (0.60-1.20); Potassium, Blood 3.6 mmol/L (3.5-5.5)
--- NOTE | 2023-03-16 17:48 | NUR ---
SHIFT SUMMARY PT REMAINS A&OX4, AMBULATES TO BS WITHOUT ASSISTANCE. OFF INSULIN GTT, AC/HS GLUCOSE CHECKS. TOLERATING PO INTAKE WELL. SMALL LOOSE BM THIS AFTERNOON. ABSCESS TO GROIN LANCED BY DR FRANCES THIS AFTERNOON, PACKING TO BE REMOVED TOMORROW BY NURSE. PT STATES HE IS FEELING MUCH BETTER, IN BED WATCHING TV WITH NO COMPLAINTS. PT NOW MEDICAL c TELE STATUS.
[2023-03-16 22:21] LABS: Bun/Creatinine Ratio 19.4 (12.0-20.0); Calcium, Blood 8.1 mg/dL (8.5-10.1); Creatinine, Blood 0.83 mg/dL (0.60-1.20); Potassium, Blood 3.8 mmol/L (3.5-5.5)
[2023-03-17] VITALS: BP 145/92
[2023-03-17 03:44] LABS: BASOPHILS ABSOLUTE AUTO 0.05 K/mm3 (0.00-0.23); BASOPHILS PERCENT AUTO 1 % (0-2); EOSINOPHILS ABSOLUTE AUTO 0.44 K/mm3 (0.00-0.68); EOSINOPHILS PERCENT AUTO 5 % (0-6); Hematocrit 29.3 % (37.0-53.0); Hemoglobin 9.8 g/dL (13.5-17.5); IMMATURE GRAN ABSOLUTE AUTO 0.03 K/mm3 (0.00-0.10); IMMATURE GRAN PERCENT AUTO 0 % (0-1); LYMPHOCYTES ABSOLUTE AUTO 2.41 K/mm3 (0.84-5.20); LYMPHOCYTES PERCENT AUTO 29 % (21-46); MONOCYTES ABSOLUTE AUTO 0.97 K/mm3 (0.16-1.47); MONOCYTES PERCENT AUTO 12 % (4-13); Mean Corpuscular HGB 30.4 pg (26.0-34.0); Mean Corpuscular HGB Conc 33.4 g/dL (31.5-36.5); Mean Corpuscular Volume 91 fL (80-100); Mean Platelet Volume 9.8 fL (9.1-12.4); NEUTROPHILS ABSOLUTE AUTO 4.36 K/mm3 (1.96-9.15); NEUTROPHILS PERCENT AUTO 53 % (41-73); Platelet Count 275 K/mm3 (150-400); RDW Coefficient Variation 13.6 % (11.7-14.2); RDW Standard Deviation 45.1 fL (35.1-46.3); Red Blood Cell Count 3.22 M/mm3 (4.30-5.90); White Blood Cell Count 8.26 K/mm3 (4.00-11.30)
[2023-03-17 04:00] VITALS: BP 150/90
[2023-03-17 04:05] LABS: Albumin, Blood 2.2 g/dL (3.4-5.0); Albumin/Globulin Ratio 0.7 (0.8-1.8); Bilirubin, Total 0.2 mg/dL (0.1-1.0); Bun/Creatinine Ratio 21.9 (12.0-20.0); Calcium, Blood 8.3 mg/dL (8.5-10.1); Creatinine, Blood 0.73 mg/dL (0.60-1.20); Globulin, Blood 3.2 g/dL (2.2-4.0); Potassium, Blood 3.3 mmol/L (3.5-5.5); Total Protein, Blood 5.4 g/dL (6.4-8.2)
--- NOTE | 2023-03-17 06:15 | NUR ---
SHIFT SUMMARY NO ACUTE EVENTS T/O NIGHT. PT A/O X 4. CALM AND COOPERATIVE WITH CARE. VSS. SR RATE 90'S. PT ONE ASSIST/IND TO BRP. HOSP CALLED REGARDING MORNING LABS. ORDERS RECEIVED. WILL REPORT OFF TO ONCOMING RN.
[2023-03-17 08:11] VITALS: BP 131/94
[2023-03-17] MEDS ORDERED: SULTRIDS PO (09:59)
--- NOTE | 2023-03-17 10:00 | NUR ---
SHIFT ASSESSMENT ASSUMED CARE OF PT @ 0700, BEDSIDE REPORT RECIEVED FROM ISRRAEL RN. PT A&OX4, FOLLOWING COMMANDS, STRONG, PLEASANT AND COOPERATIVE WITH CARE. STATES HE FEELS MUCH BETTER, HOPING TO GO HOME. PT TOLERATING FOOD AND DRINK WELL, NO N/V. AMBULATING WITHOUT ASSISTANCE. WILL BE DC'D SOON PER HOSPITALIST. BL IV'S REMOVED. WILL REMOVE GROIN PACKING PRIOR TO DC.
--- NOTE | 2023-03-17 10:34 | NUR ---
CONFIRMED MARGO DEWEY RECEIVED MEDICATION FAX VIA PHONE.
== END 2023-03-17 11:20 | disposition home or self-care (01) | DRG 638 ==
LOC: ER 02:27 → ICUE 03:41
PROVIDERS: Internal Medicine; Student in an Organized Health Care Education/Training Program; ADMIT Internal Medicine
DX: E10.10 Type 1 diabetes mellitus with ketoacidosis without coma (principal); L02.211 Cutaneous abscess of abdominal wall; L02.214 Cutaneous abscess of groin; E10.40 Type 1 diabetes mellitus with diabetic neuropathy, unspecified; F15.10 Other stimulant abuse, uncomplicated; Z79.4 Long term (current) use of insulin; Z79.811 Long term (current) use of aromatase inhibitors; Z79.2 Long term (current) use of antibiotics; Z90.89 Acquired absence of other organs; Z87.891 Personal history of nicotine dependence; Z91.199 Patient's noncompliance with other medical treatment and regimen due to unspecified reason; Z86.14 Personal history of Methicillin resistant Staphylococcus aureus infection
CPT/HCPCS: 36415; 80048; 80053; 81001; 82010; 82803; 82947; 83605; 83735; 84100; 85025; 93005; 93010; 96361; 96365; 96368; 99285-25; A9270; J0696; J1650; J1815; J3370; J3480; J7030; J7042; J7050

== ENCOUNTER 2023-09-18 04:12 | Inpatient (IN) | payer OTHER ==
[2023-09-18] VITALS (21 sets, daily range): BP systolic 115–189; BP diastolic 64–114
[~2023-09-18] VITALS: Ht 182.9 cm; Wt 88.7 kg
[~2023-09-18 04:12] MED LIST changes: +AMLO5 PO; +Cleocin HCl150 MG PO; +INSULANI; -INSULANI SC; +SULTRIDS PO
[2023-09-18] MEDS ORDERED: NS 1,000 ML IV SCH ×3 (04:20→05:30)
[2023-09-18 04:30] LABS: BASOPHILS ABSOLUTE AUTO 0.12 K/mm3 (0.00-0.23); BASOPHILS PERCENT AUTO 1 % (0-2); EOSINOPHILS ABSOLUTE AUTO 0.25 K/mm3 (0.00-0.68); EOSINOPHILS PERCENT AUTO 2 % (0-6); Hematocrit 36.8 % (37.0-53.0); Hemoglobin 11.3 g/dL (13.5-17.5); IMMATURE GRAN ABSOLUTE AUTO 0.13 K/mm3 (0.00-0.10); IMMATURE GRAN PERCENT AUTO 1 % (0-1); LYMPHOCYTES PERCENT AUTO 24 % (21-46); MONOCYTES ABSOLUTE AUTO 0.72 K/mm3 (0.16-1.47); MONOCYTES PERCENT AUTO 6 % (4-13); Mean Corpuscular HGB 29.4 pg (26.0-34.0); Mean Corpuscular HGB Conc 30.7 g/dL (31.5-36.5); Mean Corpuscular Volume 96 fL (80-100); Mean Platelet Volume 11.6 fL (9.1-12.4); NEUTROPHILS ABSOLUTE AUTO 7.79 K/mm3 (1.96-9.15); NEUTROPHILS PERCENT AUTO 66 % (41-73); Platelet Count 295 K/mm3 (150-400); RDW Coefficient Variation 12.2 % (11.7-14.2); RDW Standard Deviation 42.8 fL (35.1-46.3); Red Blood Cell Count 3.84 M/mm3 (4.30-5.90); White Blood Cell Count 11.91 K/mm3 (4.00-11.30)
[2023-09-18 04:35] LABS: Calcium, Ionized (POC) 1.16 mmol/L (1.10-1.46); Chloride (POC) 107 mmol/L (98-108); Creatinine (POC) 1.7 mg/dL (0.8-1.3); Glucose (ISTAT POC) >700 mg/dL (70-99); Hemoglobin (POC) 12.9 g/dL (13.5-17.5); Potassium (POC) 5.3 mmol/L (3.5-5.5); Sodium (POC) 133 mmol/L (135-148); Total CO2 (POC) 7 mmol/L (21-32)
[2023-09-18 04:39] LABS: Bicarbonate Venous 8.3 mmol/L (24.0-30.0); PCO2 Venous 17.7 mmHg (38-42)
[2023-09-18 04:41] LABS: pH Blood Venous 7.07 (7.34-7.37)
[2023-09-18 04:51] LABS: Magnesium, Blood 1.9 mg/dL (1.6-2.4)
[2023-09-18] MEDS ORDERED: Insulin Human Regular 100 UNIT in NS 100 ML IV SCH ×2 (04:55→06:05)
[2023-09-18] MEDS ORDERED: Metoclopramide HCl 5MG / ML 2ML Vial IV ONE (05:25)
[2023-09-18] MEDS ORDERED: Ondansetron HCl 2 MG / ML 2ML Vial IV PRN (05:30)
[2023-09-18] MEDS ORDERED: FentaNYL Citrate 50 MCG/ML 2 ML Injection IV PRN (05:30)
[2023-09-18] MEDS ORDERED: Metoclopramide HCl 5MG / ML 2ML Vial IV PRN (05:30)
[2023-09-18 05:33] LABS: Albumin, Blood 3.2 g/dL (3.4-5.0); Albumin/Globulin Ratio 0.9 (0.8-1.8); Beta-hydroxybutyrate 126.4 mg/dL (0.2-2.8); Bilirubin, Total 0.6 mg/dL (0.1-1.0); Calcium, Blood 8.4 mg/dL (8.5-10.1); Creatinine, Blood 1.5 mg/dL (0.60-1.20); Globulin, Blood 3.7 g/dL (2.2-4.0); Phosphorus, Blood 4.2 mg/dL (2.5-4.9); Potassium, Blood 5.4 mmol/L (3.5-5.5); Total Protein, Blood 6.9 g/dL (6.4-8.2)
[2023-09-18] MEDS ORDERED: Sodium Bicarb 8.4% 1 MEQ/ML 50 ML Vial IV ONE (06:00)
[2023-09-18] MEDS ORDERED: HydrALAZINE HCl 20 MG / ML 1ML Vial IV PRN (06:35)
[2023-09-18 06:41] LABS: Glucose, Blood 712 mg/dL (70-99)
[2023-09-18 07:29] LABS: Source, Urine Clean Catch
[2023-09-18 07:36] LABS: Appearance, Urine Clear (Clear); Bilirubin, Urine Neg (Neg); Blood, Urine 2+ (Neg); Color, Urine Yellow (P-Yellow); Glucose Qualitative, Urine 4+ (Neg); Ketones, Urine 4+ (Neg); Leukocyte Esterase, Urine Neg (Neg); Nitrite, Urine Neg (Neg); Protein, Urine 3+ (Neg); Specific Gravity, Urine 1.015 (1.003-1.022); Urobilinogen, Urine NORM (Normal)
[2023-09-18 07:46] LABS: Bacteria Rare /hpf; Squamous Epithelial Cells Rare /hpf (Few); White Blood Cells, Urine 0-2 /hpf (0-5)
[2023-09-18] MEDS ORDERED: Seroquel Xr50 MG PO (08:20)
[2023-09-18] MEDS ORDERED: ESCI20 PO (08:21)
[2023-09-18] MEDS ORDERED: FENO145 PO (08:27)
[2023-09-18] MEDS ORDERED: FURO20 PO (08:28)
[2023-09-18] MEDS ORDERED: POTA8 PO (08:28)
[2023-09-18] MEDS ORDERED: PREG75 PO (08:29)
[2023-09-18] MEDS ORDERED: DiphenhydrAMINE HCl 50 MG/ML 1ML Vial IV ONE (08:30)
[2023-09-18] MEDS ORDERED: Nicotine Polacrilex 2 MG Gum PO PRN (08:30)
[2023-09-18] MEDS ORDERED: Enoxaparin 40 MG/0.4 ML SYR SC SCH (09:00)
[2023-09-18 10:44] LABS: U Amphetamine Screen Not Detected; U Barbituate Screen Not Detected; U Benzodiazapine Screen Not Detected; U Buprenorphine Screen Not Detected; U Cannabinoids Screen Not Detected; U Cocaine Screen Not Detected; U Methadone Screen Not Detected; U Methamphetamine Screen Not Detected; U Opiates Screen Not Detected; U Oxycodone Screen Not Detected; U Phencyclidine Screen Not Detected
[2023-09-18 10:54] LABS: Bun/Creatinine Ratio 18.8 (12.0-20.0); Calcium, Blood 8.2 mg/dL (8.5-10.1); Creatinine, Blood 1.28 mg/dL (0.60-1.20); Potassium, Blood 4.8 mmol/L (3.5-5.5)
[2023-09-18] MEDS ORDERED: D5W-1/2NS 1,000 ML IV SCH (16:10)
[2023-09-18 17:34] LABS: Bun/Creatinine Ratio 13.8 (12.0-20.0); Creatinine, Blood 1.23 mg/dL (0.60-1.20)
--- NOTE | 2023-09-18 18:23 | NUR ---
SHIFT SUMMARY PATIENT MEDICATED WITH BENADRYL 12.5MG IV X1 FOR ITCHING RASH ON CHEST AND BACK. PATIENT SLEPT THROUGHOUT SHIFT, BUT WAS AROUSABLE TO VERBAL STIMULI. BLOOD GLUCOSE CORRECTED DOWN TO 160'S, D5 1/2 NS STARTED @ 125ML/HR. PATIENT DENIED NAUSEA THROUGHOUT SHIFT. TOLERATED CLEAR LIQUIDS WELL. GOOD URINE OUTPUT USING URINAL. TREMORS IMPROVED DURING SHIFT. INSULIN @ 4UNITS/HR. NO OTHER CHANGES THIS SHIFT.
--- NOTE | 2023-09-18 21:00 | NUR ---
ASSUMED CARE AT 1900 PT LAYING IN BED SLEEPING AT SHIFT CHANGE. HE IS VERY DROWSY BUT WAKES TO VERBAL STIMULI AND FOLLOWS DIRECTIONS. SPO2 >97% ON RA. AFEBRILE. HR 90-100'S. SBP 140'S. NO C/O NAUSEA; TOLERATING ICE CHIPS AND SMALL AMOUNT OF WATER. USES URINAL INDEPENDENTLY. REPOSITIONS SELF IN BED. INSULIN INFUSING AT 2UNITS/HR. D5 1/2NS INFUSING AT 125ML/HR. SEE SHIFT ASSESSMENT FOR FULL ASSESSMENT.
[2023-09-18 23:16] LABS: Bun/Creatinine Ratio 15.6 (12.0-20.0); Calcium, Blood 7.8 mg/dL (8.5-10.1); Creatinine, Blood 0.96 mg/dL (0.60-1.20); Potassium, Blood 3.8 mmol/L (3.5-5.5)
[2023-09-19] VITALS (17 sets, daily range): BP systolic 145–176; BP diastolic 73–115
[2023-09-19 05:08] LABS: BASOPHILS ABSOLUTE AUTO 0.07 K/mm3 (0.00-0.23); BASOPHILS PERCENT AUTO 1 % (0-2); EOSINOPHILS PERCENT AUTO 5 % (0-6); Hematocrit 30.8 % (37.0-53.0); Hemoglobin 10.5 g/dL (13.5-17.5); IMMATURE GRAN ABSOLUTE AUTO 0.03 K/mm3 (0.00-0.10); IMMATURE GRAN PERCENT AUTO 0 % (0-1); LYMPHOCYTES ABSOLUTE AUTO 2.29 K/mm3 (0.84-5.20); LYMPHOCYTES PERCENT AUTO 31 % (21-46); MONOCYTES ABSOLUTE AUTO 0.66 K/mm3 (0.16-1.47); MONOCYTES PERCENT AUTO 9 % (4-13); Mean Corpuscular HGB 29.7 pg (26.0-34.0); Mean Corpuscular HGB Conc 34.1 g/dL (31.5-36.5); Mean Platelet Volume 10.9 fL (9.1-12.4); NEUTROPHILS ABSOLUTE AUTO 3.97 K/mm3 (1.96-9.15); NEUTROPHILS PERCENT AUTO 54 % (41-73); Platelet Count 263 K/mm3 (150-400); RDW Coefficient Variation 12.4 % (11.7-14.2); RDW Standard Deviation 39.3 fL (35.1-46.3); Red Blood Cell Count 3.53 M/mm3 (4.30-5.90); White Blood Cell Count 7.42 K/mm3 (4.00-11.30)
[2023-09-19 05:11] LABS: Mean Corpuscular Volume 87 fL (80-100)
[2023-09-19 05:13] LABS: Albumin, Blood 2.8 g/dL (3.4-5.0); Albumin/Globulin Ratio 0.9 (0.8-1.8); Bilirubin, Total 0.3 mg/dL (0.1-1.0); Bun/Creatinine Ratio 12.5 (12.0-20.0); Calcium, Blood 7.8 mg/dL (8.5-10.1); Creatinine, Blood 0.96 mg/dL (0.60-1.20); Globulin, Blood 3.1 g/dL (2.2-4.0); Potassium, Blood 3.3 mmol/L (3.5-5.5); Total Protein, Blood 5.9 g/dL (6.4-8.2)
[2023-09-19] MEDS ORDERED: Potassium Chloride 40 MEQ in NS 250 ML IV ONE (05:55)
--- NOTE | 2023-09-19 06:26 | NUR ---
END OF SHIFT SUMMARY NO ACUTE EVENTS THIS SHIFT. HE SLEPT FOR MOST OF THE NIGHT BUT WAS STILL ABLE TO WAKE TO VERBAL STIMULI; PT STATES THIS AM THAT HE FEELS "MUCH BETTER" . SPO2 >98% ON RA. AFEBRILE. HR 90'S. SBP 140-160'S. TOLERATING PO FLUID WELL; NO C/O NAUSEA. USES URINAL INDEPENDENTLY. INSULIN INFUSING AT 2UNITS/HR. GLUCOSE RANGING AROUND 140'S. CALL MADE TO DR LÓPEZ REGARDING AM POTASSIUM; NEW ORDERS PROVIDED TO REPLACE. D5 1/2NS INFUSING AT 125ML/HR. WILL REPORT TO AM RN WHEN AVAILABLE.
--- NOTE | 2023-09-19 07:46 | NUR ---
ASSUMED CARE I ASSUMED CARE OF THIS PATIENT AT 0715 FROM CLOVIS Healy RN. PATIENT IS SITTING UP IN BED WATCHING TV. CALM AND COOPERATIVE, GREETS STAFF UPON ENTERING ROOM. INSULIN GTT @ 2 UNITS/HR AND D5 1/2 NS @ 125ML/HR. NO VISITORS AT BEDSIDE AND PATIENT DENIES PAIN, C/O SLIGHT ITCHING OF CHEST RASH. URINAL AND BELONGINGS IN REACH. BEDSIDE SHIFT REPORT COMPLETED WITH CLOVIS Healy RN.
[2023-09-19 11:08] LABS: Bun/Creatinine Ratio 10.5 (12.0-20.0); Calcium, Blood 7.7 mg/dL (8.5-10.1); Creatinine, Blood 0.95 mg/dL (0.60-1.20); Potassium, Blood 3.5 mmol/L (3.5-5.5)
[2023-09-19 14:49] LABS: Bun/Creatinine Ratio 9.1 (12.0-20.0); Calcium, Blood 8.1 mg/dL (8.5-10.1); Creatinine, Blood 0.88 mg/dL (0.60-1.20); Potassium, Blood 3.1 mmol/L (3.5-5.5)
[2023-09-19] MEDS ORDERED: Potassium Chloride 20 MEQ TabCR PO ONE (15:30)
[2023-09-19] MEDS ORDERED: Insulin Glargine-Yfgn 100 Unit/mL 3 ML SYR SC ONE (16:00)
[2023-09-19] MEDS ORDERED: Insulin Human Lispro 100 Units/ML 3ML Syringe SC SCH ×2 (16:30→21:45)
--- NOTE | 2023-09-19 18:12 | NUR ---
SHIFT SUMMARY PATIENT TRANSITIONED OFF INSULIN GTT TO HOME DOSE OF LANTUS AND A MEDIUM SLIDING SCALE OF HUMALOG. TOLERATING PO INTAKE WELL. DOWNGRADED TO MED WITHOUT TELEMETRY. PATIENT IS INDEPENDENT IN THE ROOM. DENIES NAUSEA. GOOD URINE OUPUT THIS SHIFT. NO OTHER CHANGES THIS SHIFT.
--- NOTE | 2023-09-19 20:23 | NUR ---
ASSUMPTION OF CARE/ASSESSMENT: ASSUMED CARE OF PT AT 1900. PT A&O X 4, PLEASANT AND INDEPENDENT WITH ADL'S. VSS ARE STABLE, AND PT HAS NO PAIN COMPLAINTS AT THIS TIME. PT CONTINUES ON RA. TOLERATING PO INTAKE, CBGS HAVE BEEN STABLE. PT BEING TRANSFERRED TO [facility] RM 312. REPORT GIVEN TO CJ WARE TO ASSUME CARE OF PT. THIS RN TO TRANSFER PT VIA WHEELCHAIR WITH ALL OF PATIENTS BELONGINGS.
--- NOTE | 2023-09-19 20:45 | NUR ---
PATIENT TRANSFER TO ROOM 312 FROM ICU. PATIENT ARRIVED TO ROOM VIA WHEELCHAIR AND ONE PERSON TRANSFER. PATIENT ABLE TO SELF TRANSFER FROM WHEELCHAIR TO BED WTIH A STEADY GAIT. PATIENT ARRIVED WITH A PERSONAL BELONGINGS BAG, PHONE, AND GLASSES THAT IS VISABLE. THIS RN TO ASSUME CARE OF PATIENT.
[2023-09-20 00:45] LABS: Bun/Creatinine Ratio 14.6 (12.0-20.0); Calcium, Blood 8.4 mg/dL (8.5-10.1); Creatinine, Blood 0.96 mg/dL (0.60-1.20); Potassium, Blood 4.2 mmol/L (3.5-5.5)
[2023-09-20 03:23] VITALS: BP 155/95
--- NOTE | 2023-09-20 05:44 | NUR ---
SHIFT SUMMARY. PATIENT IS A&OX4. PATIENT CALLS APPROPRIATELY AND IS ABLE TO MAKE HIS NEEDS KNOWN. PATIENT IS INDEPENDENT IN ROOM. PATIENT IS PLEASANT AND COOPERATIVE WITH CARE. PATIENT ADMITTED FOR DKA. PATIENT HAS SLEPT T/O NIGHT WITH RESPIRATIONS EQUAL AND UNLABORED. BED IS LOCKED IN THE LOWEST POSITION WITH CALL LIGHT IN REACH. CARE IS ONGOING.
[2023-09-20 06:10] LABS: Bun/Creatinine Ratio 13.3 (12.0-20.0); Calcium, Blood 8.6 mg/dL (8.5-10.1); Creatinine, Blood 1.05 mg/dL (0.60-1.20); Potassium, Blood 4.3 mmol/L (3.5-5.5)
--- NOTE | 2023-09-20 06:33 | NUR ---
HOSPITALIST CONTACTED. NOTIFIED OF PATIENTS CBG WITH MORNING LABS IS 485. DR. LÓPEZ ORDERED FOR PATIENT TO RECEIVE 0730 HUMALOG AND 0900 GLARGINE TO BE GIVEN.
[2023-09-20] MEDS ORDERED: Insulin Human Lispro 100 Units/ML 3ML Syringe SC ONE (06:35)
[2023-09-20 07:33] VITALS: BP 162/91
[2023-09-20] MEDS ORDERED: NS 1,000 ML IV SCH ×2 (08:00→13:45)
--- NOTE | 2023-09-20 08:37 | NUR ---
MD NOTIFIED Assumed care of patient at 0645, night RN reported that this AM CBG was 485mg/dL. The night MD instructed her to give AM insulin. 0730: CBG was 432mg/dL, rechecked at 0800, now CBG is 353mg/dL. 1L fluids ordered, NS x1 infusing at 150mL/hr. Patient AOx4, no signs of DKA observed, patient denies feeling unwell, states he feels fine. VSS, BP is elevated, MD will restart home BP meds this AM. The plan is to monitor labs and CBGs.
[2023-09-20] MEDS ORDERED: Insulin Glargine-Yfgn 100 Unit/mL 3 ML SYR SC SCH ×2 (09:00→21:00)
[2023-09-20] MEDS ORDERED: Lisinopril 20 MG Tab PO SCH (09:15)
[2023-09-20] MEDS ORDERED: AmLODIPine Besylate 5 MG Tab PO SCH (09:15)
[2023-09-20 11:55] LABS: Bun/Creatinine Ratio 13.4 (12.0-20.0); Calcium, Blood 8.6 mg/dL (8.5-10.1); Creatinine, Blood 0.97 mg/dL (0.60-1.20); Potassium, Blood 3.9 mmol/L (3.5-5.5)
[2023-09-20 14:59] VITALS: BP 154/88
[2023-09-20 15:25] LABS: Bun/Creatinine Ratio 12.3 (12.0-20.0); Calcium, Blood 8.5 mg/dL (8.5-10.1); Creatinine, Blood 1.06 mg/dL (0.60-1.20)
[2023-09-20] MEDS ORDERED: Insulin Human Lispro 100 Units/ML 3ML Syringe SC SCH (16:00)
--- NOTE | 2023-09-20 17:04 | NUR ---
SHIFT SUMMARY PT BLOOD SUGAR NOTED TO BE TRENDING DOWN THIS SHIFT. INSULIN DOSE CHANGED THIS SHIFT. PT CONT TO REMAIN ASYMPTOMANIC.
[2023-09-20 19:23] VITALS: BP 133/79
[2023-09-20 21:41] LABS: Bun/Creatinine Ratio 11.8 (12.0-20.0); Calcium, Blood 8.5 mg/dL (8.5-10.1); Creatinine, Blood 1.27 mg/dL (0.60-1.20); Potassium, Blood 3.6 mmol/L (3.5-5.5)
[2023-09-21 03:47] VITALS: BP 151/91
[2023-09-21 06:28] LABS: Bun/Creatinine Ratio 14.4 (12.0-20.0); Calcium, Blood 8.8 mg/dL (8.5-10.1); Creatinine, Blood 1.04 mg/dL (0.60-1.20); Potassium, Blood 3.2 mmol/L (3.5-5.5)
[2023-09-21] MEDS ORDERED: Potassium Chloride 20 MEQ TabCR PO ONE (07:15)
[2023-09-21] MEDS ORDERED: Insulin Human Lispro 100 Units/ML 3ML Syringe SC SCH (07:30)
--- NOTE | 2023-09-21 07:45 | NUR ---
SIDE PIECE COVERER SUMMARY VSS. ALERT AND ORIENTED. IVF OF NS INFUSING AT 100 ML/HR. HERE FOR DKA. ACCU CHECKS Q 4 HRS. COVERAGE GIVEN ORDERED - SEE MAR FOR DETAILS. UP AD BELEN. ABLE TO REPOSITION SELF IN BED WITHOUT ASSISTANCE. HAS BEEN RESTING QUIETLY WITH FEW INTERRUPTIONS. CALL LIGHT IN REACH, RAILS UP X 2 AND BED IN LOW POSITOIN FOR SAFETY. WILL CONTINUE TO MONITOR
[2023-09-21 08:02] VITALS: BP 178/108
[2023-09-21] MEDS ORDERED: HUMALOG KW100 UNIT/1 SC (14:05)
--- NOTE | 2023-09-21 14:29 | NUR ---
DISHCARGE SUMMARY PT D/C THIS SHIFT ACCOMPANIED BY MOTHER. PT WAS EDUCATED ON DISCHARGE ORDERS AND VERBALIZED UNDERSTANDING.
== END 2023-09-21 14:53 | disposition home or self-care (01) | DRG 638 ==
LOC: ER 04:12 → ICUE 04:13 → MEDS 04:13 → ICUE 04:13 → MEDS 09-19 20:47
PROVIDERS: Emergency Medicine; Internal Medicine; Nurse Practitioner Acute Care; Physician Assistant; ADMIT Internal Medicine
DX: E10.10 Type 1 diabetes mellitus with ketoacidosis without coma (principal); N17.9 Acute kidney failure, unspecified; F15.10 Other stimulant abuse, uncomplicated; L01.02 Bockhart's impetigo; E10.40 Type 1 diabetes mellitus with diabetic neuropathy, unspecified; Z86.19 Personal history of other infectious and parasitic diseases; I10 Essential (primary) hypertension; Z79.899 Other long term (current) drug therapy; E86.0 Dehydration; Z79.4 Long term (current) use of insulin; Z79.811 Long term (current) use of aromatase inhibitors; Z90.89 Acquired absence of other organs; Z87.891 Personal history of nicotine dependence
CPT/HCPCS: 80047; 80048; 80053; 81001; 82010; 82803; 82947; 83735; 84100; 85014; 85025; 96361; 96372; 96374; 96375; 96376; 99284-25; A9270; C1751; G0378; J0360; J1200; J1650; J1815; J2765; J3480; J7030; J7040; J7042; J7050

== ENCOUNTER 2023-12-12 13:28 | Inpatient (IN) | payer OTHER ==
[~2023-12-12] VITALS: Ht 182.9 cm; Wt 84.8 kg
[2023-12-12] VITALS (22 sets, daily range): BP systolic 145–194; BP diastolic 86–135
[~2023-12-12 13:28] MED LIST changes: +ESCI20 PO; +FENO145 PO; +FURO20 PO; +POTA8 PO; +PREG75 PO; +Seroquel Xr50 MG PO
[2023-12-12 14:03] LABS: Base Excess Venous -18.5 mmol/L; PCO2 Venous 22.8 mmHg (38-42); pH Blood Venous 7.22 (7.34-7.37)
[2023-12-12 14:11] LABS: BASOPHILS ABSOLUTE AUTO 0.13 K/mm3 (0.00-0.23); BASOPHILS PERCENT AUTO 1 % (0-2); EOSINOPHILS ABSOLUTE AUTO 0.34 K/mm3 (0.00-0.68); EOSINOPHILS PERCENT AUTO 3 % (0-6); Hematocrit 35.8 % (37.0-53.0); Hemoglobin 11.3 g/dL (13.5-17.5); IMMATURE GRAN ABSOLUTE AUTO 0.11 K/mm3 (0.00-0.10); IMMATURE GRAN PERCENT AUTO 1 % (0-1); LYMPHOCYTES ABSOLUTE AUTO 2.75 K/mm3 (0.84-5.20); LYMPHOCYTES PERCENT AUTO 24 % (21-46); MONOCYTES ABSOLUTE AUTO 0.85 K/mm3 (0.16-1.47); MONOCYTES PERCENT AUTO 8 % (4-13); Mean Corpuscular HGB 30.2 pg (26.0-34.0); Mean Corpuscular HGB Conc 31.6 g/dL (31.5-36.5); Mean Corpuscular Volume 96 fL (80-100); Mean Platelet Volume 11.2 fL (9.1-12.4); NEUTROPHILS ABSOLUTE AUTO 7.07 K/mm3 (1.96-9.15); NEUTROPHILS PERCENT AUTO 63 % (41-73); Platelet Count 373 K/mm3 (150-400); RDW Coefficient Variation 13.8 % (11.7-14.2); RDW Standard Deviation 48.7 fL (35.1-46.3); Red Blood Cell Count 3.74 M/mm3 (4.30-5.90); White Blood Cell Count 11.25 K/mm3 (4.00-11.30)
[2023-12-12 15:01] LABS: Albumin, Blood 2.2 g/dL (3.4-5.0); Albumin/Globulin Ratio 0.5 (0.8-1.8); Beta-hydroxybutyrate 109.9 mg/dL (0.2-2.8); Bilirubin, Total 0.8 mg/dL (0.1-1.0); Bun/Creatinine Ratio 29.5 (12.0-20.0); Creatinine, Blood 1.12 mg/dL (0.60-1.20); Globulin, Blood 4.6 g/dL (2.2-4.0); Total Protein, Blood 6.8 g/dL (6.4-8.2)
[2023-12-12] MEDS ORDERED: NS 1,000 ML IV ONE (15:36)
[2023-12-12] MEDS ORDERED: NS 1,000 ML IV SCH ×2 (15:50→16:55)
[2023-12-12] MEDS ORDERED: Vancomycin HCL 1,500 MG in NS 250 ML IV ONE (15:50)
[2023-12-12] MEDS ORDERED: Insulin Human Regular 100 UNIT in NS 100 ML IV SCH (15:50)
[2023-12-12] MEDS ORDERED: Ondansetron HCl 2 MG / ML 2ML Vial IV PRN ×2 (15:50→17:10)
[2023-12-12] MEDS ORDERED: Potassium Chloride 20 MEQ in Sodium Chloride 0.45% 1,000 ML IV SCH (15:55)
[2023-12-12] MEDS ORDERED: Metoclopramide HCl 5MG / ML 2ML Vial IV PRN (17:05)
[2023-12-12] MEDS ORDERED: Dextrose 50% 50 ML Vial IV PRN (17:10)
[2023-12-12] MEDS ORDERED: FLU VACC TS2024-25(6MOS UP)/PF 45 MCG/0.5 ML SYRINGE IM SCH (17:10)
[2023-12-12] MEDS ORDERED: Acetaminophen 325 MG TABLET PO PRN (17:10)
[2023-12-12] MEDS ORDERED: Lactated Ringer's 1,000 ML IV SCH (17:15)
[2023-12-12] MEDS ORDERED: Lactated Ringer's 1,000 ML IV ONE ×2 (18:00→19:55)
--- NOTE | 2023-12-12 18:46 | NUR ---
PT TO ICU 16 AT 1820. PT IS A/O X4. NAUSEATED. HAS INSULIN GTT RUNNING AT 12.8UNITS/HR FROM ER. STAT GLUCOSE ORDER PLACED. LR STARTED PER ORDERS. LAB HERE NOW TO DRAW BMP.
[2023-12-12 19:34] LABS: Bun/Creatinine Ratio 28.9 (12.0-20.0); Calcium, Blood 8.9 mg/dL (8.5-10.1); Creatinine, Blood 1.21 mg/dL (0.60-1.20); Potassium, Blood 4.5 mmol/L (3.5-5.5)
[2023-12-12 19:34] LABS: Glucose, Blood 828 mg/dL (70-99)
--- NOTE | 2023-12-12 20:00 | NUR ---
ASSUMED CARE OF PATIENT AT 1900. REPORT RECEIVED AT BEDSIDE. PT PRESENTS IN BED. VERY ILL APPEARING INDIVIDUAL. PT ON INSULIN DRIP AT 12.8 UNITS PER HOUR. HAVE CHANGED INSULIN TO 12 UNITS PER HOUR. POWERGLIDE PLACED TO LEFT UPPER ARM. PT TOLERATES THIS WELL. HAVE CONTACTED RUTH MCQUEEN, PRODUCE SHIPPER - HOSPITALIST CONCERNING LABS AND IV FLUIDS IN CONNECTION TO BLOOD GLUCOSE LEVELS. ORDERS RECEIVED. WILL REVIEW CHART AND PLAN OF CARE FOR THIS PT.
[2023-12-12 20:08] LABS: Base Excess Venous -23.5 mmol/L; pH Blood Venous 7.11 (7.34-7.37)
[2023-12-12 20:24] LABS: Source, Urine Clean Catch
[2023-12-12 20:31] LABS: Glucose, Blood 645 mg/dL (70-99)
[2023-12-12 20:39] LABS: Appearance, Urine Clear (Clear); Bilirubin, Urine Neg (Neg); Blood, Urine 2+ (Neg); Glucose Qualitative, Urine 4+ (Neg); Ketones, Urine 4+ (Neg); Leukocyte Esterase, Urine Neg (Neg); Nitrite, Urine Neg (Neg); Protein, Urine 3+ (Neg); Urobilinogen, Urine NORM (Normal)
[2023-12-12 20:47] LABS: Color, Urine Pale Yellow (P-Yellow)
[2023-12-12 20:49] LABS: Bacteria Few /hpf; Squamous Epithelial Cells Rare /hpf (Few); White Blood Cells, Urine 0-2 /hpf (0-5)
[2023-12-12] MEDS ORDERED: Lactobacil 2-S.Thermo-Bifido 1 1 Cap PO SCH (21:00)
[2023-12-12] MEDS ORDERED: Trimethoprim/Sulfamethoxazole DS Tab PO SCH (21:00)
[2023-12-12] MEDS ORDERED: QUEtiapine Fumarate 100 MG Tab PO SCH (21:00)
[2023-12-12 21:10] LABS: U Amphetamine Screen Not Detected; U Barbituate Screen Not Detected; U Benzodiazapine Screen Not Detected; U Buprenorphine Screen Not Detected; U Cannabinoids Screen DETECTED; U Cocaine Screen Not Detected; U Methadone Screen Not Detected; U Methamphetamine Screen Not Detected; U Opiates Screen Not Detected; U Oxycodone Screen Not Detected; U Phencyclidine Screen Not Detected
[2023-12-12 21:37] LABS: Bun/Creatinine Ratio 25.6 (12.0-20.0); Calcium, Blood 8.5 mg/dL (8.5-10.1); Creatinine, Blood 1.25 mg/dL (0.60-1.20); Potassium, Blood 4.1 mmol/L (3.5-5.5)
--- NOTE | 2023-12-12 22:36 | NUR ---
PT HAS DROP IN GLUCOSE LEVEL BY OVER 100 IN ONE HOUR. CUT INSULIN DRIP IN HALF FROM 8 TO 4 UNITS. CONTINUING HOURLY GLUCOSE CHECKS. PT MEDICATED ONCE WITH ZOFRAN FOR NAUSEA. WILL CONTINUE TO MONITOR PT.
[2023-12-13] VITALS (37 sets, daily range): BP systolic 116–219; BP diastolic 64–121
[2023-12-13] MEDS ORDERED: D5W-1/2NS 1,000 ML IV SCH (00:20)
[2023-12-13 01:11] LABS: Bun/Creatinine Ratio 24.3 (12.0-20.0); Calcium, Blood 8.3 mg/dL (8.5-10.1); Creatinine, Blood 1.11 mg/dL (0.60-1.20)
[2023-12-13] MEDS ORDERED: HydrALAZINE HCl 20 MG / ML 1ML Vial IV PRN (01:55)
--- NOTE | 2023-12-13 02:31 | NUR ---
CALL MADE TO DR LÓPEZ CONCERNING PT'S BLOOD PRESSURES BEING ELEVATED. ORDER RECEIVED FOR HYDRALAZINE. THIS HAS BEEN ADMINISTERED. WILL CONTINUE TO MONIOTR FOR AFFECT. PT HAS BEEN UP TO TOILET AND HAS LARGE BM. PT STEADY ON HIS FEET. HAS HAD TRANSIENT NAUSEA. WILL CONTINUE TO MONITOR.
[2023-12-13 04:26] LABS: BASOPHILS PERCENT AUTO 1 % (0-2); EOSINOPHILS ABSOLUTE AUTO 0.01 K/mm3 (0.00-0.68); EOSINOPHILS PERCENT AUTO 0 % (0-6); Hematocrit 29.1 % (37.0-53.0); Hemoglobin 9.7 g/dL (13.5-17.5); IMMATURE GRAN ABSOLUTE AUTO 0.45 K/mm3 (0.00-0.10); IMMATURE GRAN PERCENT AUTO 4 % (0-1); LYMPHOCYTES ABSOLUTE AUTO 2.18 K/mm3 (0.84-5.20); LYMPHOCYTES PERCENT AUTO 20 % (21-46); MONOCYTES ABSOLUTE AUTO 0.92 K/mm3 (0.16-1.47); MONOCYTES PERCENT AUTO 8 % (4-13); Mean Corpuscular HGB 30.4 pg (26.0-34.0); Mean Corpuscular HGB Conc 33.3 g/dL (31.5-36.5); Mean Platelet Volume 10.6 fL (9.1-12.4); NEUTROPHILS ABSOLUTE AUTO 7.37 K/mm3 (1.96-9.15); NEUTROPHILS PERCENT AUTO 67 % (41-73); Platelet Count 338 K/mm3 (150-400); RDW Coefficient Variation 14.1 % (11.7-14.2); RDW Standard Deviation 47.5 fL (35.1-46.3); Red Blood Cell Count 3.19 M/mm3 (4.30-5.90); White Blood Cell Count 11.03 K/mm3 (4.00-11.30)
[2023-12-13 04:45] LABS: Bun/Creatinine Ratio 23.5 (12.0-20.0); Calcium, Blood 8.3 mg/dL (8.5-10.1); Creatinine, Blood 1.02 mg/dL (0.60-1.20); Magnesium, Blood 1.9 mg/dL (1.6-2.4); Potassium, Blood 3.6 mmol/L (3.5-5.5)
[2023-12-13 04:56] LABS: Mean Corpuscular Volume 91 fL (80-100)
--- NOTE | 2023-12-13 06:31 | NUR ---
PT CONTINUES ON INSULIN DRIP AT 3 UNITS. HAS BEEN UP TO TOILET TO HAVE LARGE BM. VOIDS Q.S. NO FURTHER COMPLAINTS OF NAUSEA. WOUND PIC TAKEN OF WOUND TO THE POSTERIOR ASPECT OF UPPER RIGHT ARM. PT STATES THAT THIS WAS FROM A DEXCOM 7 APPLIANCE CAUSING AN INFECTION. STATES THAT THE DRAINAGE HE HAS BEEN HAVING IS "CHAIDEZ" IN COLOR. PT HAS REMAINED AFEBRILE THROUGHOUT THE NIGHT. HYPERTENSIVE WHICH RESPONDED FOR SHORT PERIOD OF TIME TO IV HYDRALAZINE. TOO EARLY FOR NEXT AVAILABLE PRN DOSE. WILL CONTINUE TO MONITOR PT, AND WILL REEPORT OFF TO ONCOMING RN.
--- NOTE | 2023-12-13 08:37 | NUR ---
WOUND DOCUMENTATION DR. GEORGE AT BEDSIDE AND SHOWED HER WOUND ON R BACK OF ARM.
[2023-12-13] MEDS ORDERED: AmLODIPine Besylate 5 MG Tab PO SCH (09:00)
[2023-12-13] MEDS ORDERED: Lisinopril 20 MG Tab PO SCH (09:00)
[2023-12-13] MEDS ORDERED: Enoxaparin 40 MG/0.4 ML SYR SC SCH (09:00)
[2023-12-13 09:30] LABS: Bun/Creatinine Ratio 20.4 (12.0-20.0); Calcium, Blood 7.8 mg/dL (8.5-10.1); Creatinine, Blood 0.93 mg/dL (0.60-1.20); Potassium, Blood 3.8 mmol/L (3.5-5.5)
[2023-12-13 12:48] LABS: Bun/Creatinine Ratio 19.1 (12.0-20.0); Potassium, Blood 3.2 mmol/L (3.5-5.5)
--- NOTE | 2023-12-13 13:00 | NUR ---
REPORTED CO2, ANION GAP, AND POTASSIUM LEVEL TO DR. GEORGE.
[2023-12-13] MEDS ORDERED: Potassium Chl 20MEQ/Water100ML 100 ML IV SCH (14:40)
[2023-12-13] MEDS ORDERED: Potassium Chl 20MEQ/Water100ML 100 ML IV ONE (14:45)
[2023-12-13] MEDS ORDERED: Insulin Human Lispro 100 Units/ML 3ML Syringe SC SCH (16:30)
--- NOTE | 2023-12-13 17:46 | NUR ---
SUMMARY PT A/O X4. SLEPT MOST OF THE DAY. PLEASANT AND COOPERATIVE WITH CARE. CO2 AND ANION GAP ARE NORMAL NOW. LONG ACTING INSULIN GIVEN AND INSULIN GTT WILL BE STOPPED AT 1945. PT IS TOLERATING DINNER WITHOUT ISSUE. USING CALL LIGHT APPROPRIATELY. NO SIGN OF DISTRESS.
[2023-12-13 20:13] LABS: Bun/Creatinine Ratio 12.3 (12.0-20.0); Calcium, Blood 8.1 mg/dL (8.5-10.1); Creatinine, Blood 1.14 mg/dL (0.60-1.20); Potassium, Blood 3.3 mmol/L (3.5-5.5)
[2023-12-13] MEDS ORDERED: Insulin Glargine-Yfgn 100 Unit/mL 3 ML SYR SC SCH (21:00)
[2023-12-14] VITALS (9 sets, daily range): BP systolic 121–179; BP diastolic 75–103
[2023-12-14 02:00] LABS: Bun/Creatinine Ratio 11.8 (12.0-20.0); Calcium, Blood 8.3 mg/dL (8.5-10.1); Creatinine, Blood 1.19 mg/dL (0.60-1.20); Potassium, Blood 3.1 mmol/L (3.5-5.5)
[2023-12-14] MEDS ORDERED: Potassium Chl 20MEQ/Water100ML 100 ML IV SCH (03:00)
[2023-12-14 04:19] LABS: BASOPHILS ABSOLUTE AUTO 0.05 K/mm3 (0.00-0.23); BASOPHILS PERCENT AUTO 1 % (0-2); EOSINOPHILS ABSOLUTE AUTO 0.29 K/mm3 (0.00-0.68); EOSINOPHILS PERCENT AUTO 4 % (0-6); Hematocrit 26.3 % (37.0-53.0); Hemoglobin 8.7 g/dL (13.5-17.5); IMMATURE GRAN ABSOLUTE AUTO 0.08 K/mm3 (0.00-0.10); IMMATURE GRAN PERCENT AUTO 1 % (0-1); LYMPHOCYTES ABSOLUTE AUTO 3.32 K/mm3 (0.84-5.20); LYMPHOCYTES PERCENT AUTO 43 % (21-46); MONOCYTES PERCENT AUTO 6 % (4-13); Mean Corpuscular HGB 30.4 pg (26.0-34.0); Mean Corpuscular HGB Conc 33.1 g/dL (31.5-36.5); Mean Corpuscular Volume 92 fL (80-100); Mean Platelet Volume 10.7 fL (9.1-12.4); NEUTROPHILS ABSOLUTE AUTO 3.56 K/mm3 (1.96-9.15); NEUTROPHILS PERCENT AUTO 46 % (41-73); Platelet Count 272 K/mm3 (150-400); RDW Coefficient Variation 14.8 % (11.7-14.2); RDW Standard Deviation 50.3 fL (35.1-46.3); Red Blood Cell Count 2.86 M/mm3 (4.30-5.90)
[2023-12-14 04:37] LABS: Albumin, Blood 1.7 g/dL (3.4-5.0); Albumin/Globulin Ratio 0.5 (0.8-1.8); Bilirubin, Total 0.2 mg/dL (0.1-1.0); Bun/Creatinine Ratio 12.3 (12.0-20.0); Calcium, Blood 8.3 mg/dL (8.5-10.1); Creatinine, Blood 1.06 mg/dL (0.60-1.20); Globulin, Blood 3.4 g/dL (2.2-4.0); Potassium, Blood 3.1 mmol/L (3.5-5.5); Total Protein, Blood 5.1 g/dL (6.4-8.2)
--- NOTE | 2023-12-14 06:58 | NUR ---
SHIFT SUMMARY: NO ACUTE CHANGES OVERNIGHT; VSS THROUGHOUT THE SHIFT, WITH THE EXCEPTION OF ONE EPISODE OF HTN WITH HYDRALAZINE X 1 WITH GOOD EFFECT. PT INDEPENDENT WITH ADL'S, CALL FOR ASSISTANCE NEEDED. INSULIN DRIP OFF AT 1945; NO N/V NOTED. LOW POTASSIUM THIS AM, RECIEVING 40 MEQ KCL REPLACEMENT. BED LOWERED, CALL LIGHT IN REACH. REPORT GIVEN TO VASYL WARE.
[2023-12-14] MEDS ORDERED: Ibuprofen 600 MG Tab PO ONE (10:00)
[2023-12-14] MEDS ORDERED: HUMALOG KW100 UNIT/1 SC (10:45)
[2023-12-14] MEDS ORDERED: SULTRIDS PO (10:48)
[2023-12-14] MEDS ORDERED: LACT PO (10:49)
--- NOTE | 2023-12-14 12:44 | NUR ---
SUMMARY PT A/O X4. TOLERATING MEALS. DR. TONY DRAINED ABCESS TO R BACK OF ARM THIS AM. PT TOLERATED WELL. OK TO DISCHARGE HOME. RX FOR GLUCOMETER AND SUPPLIES GIVEN TO PT AND INSTRUCTED TO CALL IF THERE ARE ANY PROBLEMS GETTING SUPPLIES. NO SIGN OF DISTRESS PT AMBULATES OUT OF UNIT.
== END 2023-12-14 12:38 | disposition home or self-care (01) | DRG 638 ==
LOC: ER 13:28 → ICUE 16:47
PROVIDERS: Hospitalist; Nurse Practitioner Acute Care; Physician Assistant; Student in an Organized Health Care Education/Training Program; ADMIT Family Medicine
DX: E10.10 Type 1 diabetes mellitus with ketoacidosis without coma (principal); L02.413 Cutaneous abscess of right upper limb; I10 Essential (primary) hypertension; F15.10 Other stimulant abuse, uncomplicated; E10.40 Type 1 diabetes mellitus with diabetic neuropathy, unspecified; E87.6 Hypokalemia; Z79.899 Other long term (current) drug therapy; Z79.4 Long term (current) use of insulin; Z90.89 Acquired absence of other organs; Z87.891 Personal history of nicotine dependence
CPT/HCPCS: 36415; 71045; 76882; 80048; 80053; 81001; 82010; 82803; 82947; 83735; 85025; 93005; 93010; 96361; 96374; 96375; 99285-25; A9270; C1751; J0360; J1815; J2405; J3370; J3480; J7030; J7042; J7050; J7120

== ENCOUNTER 2024-05-23 15:49 | Inpatient (IN) | payer OTHER ==
[~2024-05-23] VITALS: Ht 182.9 cm; Wt 88.6 kg
[~2024-05-23 15:49] MED LIST changes: +LACT PO
[2024-05-23 16:12] LABS: BASOPHILS ABSOLUTE AUTO 0.06 K/mm3 (0.00-0.23); BASOPHILS PERCENT AUTO 0 % (0-2); EOSINOPHILS PERCENT AUTO 0 % (0-6); Hematocrit 29.2 % (37.0-53.0); Hemoglobin 10.2 g/dL (13.5-17.5); IMMATURE GRAN ABSOLUTE AUTO 0.09 K/mm3 (0.00-0.10); IMMATURE GRAN PERCENT AUTO 1 % (0-1); LYMPHOCYTES ABSOLUTE AUTO 1.96 K/mm3 (0.84-5.20); LYMPHOCYTES PERCENT AUTO 12 % (21-46); MONOCYTES ABSOLUTE AUTO 1.49 K/mm3 (0.16-1.47); MONOCYTES PERCENT AUTO 9 % (4-13); Mean Corpuscular HGB 28.7 pg (26.0-34.0); Mean Corpuscular HGB Conc 34.9 g/dL (31.5-36.5); Mean Corpuscular Volume 82 fL (80-100); Mean Platelet Volume 11.1 fL (9.1-12.4); NEUTROPHILS ABSOLUTE AUTO 12.87 K/mm3 (1.96-9.15); NEUTROPHILS PERCENT AUTO 78 % (41-73); Platelet Count 298 K/mm3 (150-400); RDW Coefficient Variation 13.4 % (11.7-14.2); RDW Standard Deviation 40.5 fL (35.1-46.3); Red Blood Cell Count 3.56 M/mm3 (4.30-5.90); White Blood Cell Count 16.47 K/mm3 (4.00-11.30)
[2024-05-23 16:14] LABS: Base Excess Venous -7.3 mmol/L; Bicarbonate Venous 19.2 mmol/L (24.0-30.0); PCO2 Venous 30.7 mmHg (38-42); pH Blood Venous 7.37 (7.34-7.37)
[2024-05-23] MEDS ORDERED: Ondansetron HCl 2 MG / ML 2ML Vial IV ONE (16:20)
[2024-05-23] MEDS ORDERED: Lactated Ringer's 1,000 ML IV ONE ×2 (16:20→17:20)
[2024-05-23 16:41] LABS: Albumin, Blood 3.4 g/dL (3.4-5.0); Albumin/Globulin Ratio 1.1 (0.8-1.8); Bilirubin, Total 0.9 mg/dL (0.1-1.0); Bun/Creatinine Ratio 27.5 (12.0-20.0); Calcium, Blood 9.2 mg/dL (8.5-10.1); Creatinine, Blood 1.42 mg/dL (0.60-1.20); Globulin, Blood 3.1 g/dL (2.2-4.0); Potassium, Blood 3.7 mmol/L (3.5-5.5); Total Protein, Blood 6.5 g/dL (6.4-8.2)
[2024-05-23 16:56] LABS: Beta-hydroxybutyrate 61.3 mg/dL (0.2-2.8)
[2024-05-23] MEDS ORDERED: Haloperidol Lactate Inj. 5 MG/ML Injection IV ONE (17:25)
[2024-05-23 17:41] LABS: Influenza A, PCR NEGATIVE (NEGATIVE); Influenza B, PCR NEGATIVE (NEGATIVE); Resp Syncytial Virus, PCR NEGATIVE (NEGATIVE); SARS-Cov-2 (COVID-19) PCR, MMC NEGATIVE (NEGATIVE)
[2024-05-23 18:14] LABS: Source, Urine Clean Catch
[2024-05-23 18:24] LABS: Bilirubin, Urine Neg (Neg); Blood, Urine 2+ (Neg); Color, Urine Yellow (P-Yellow); Glucose Qualitative, Urine 4+ (Neg); Ketones, Urine 3+ (Neg); Leukocyte Esterase, Urine Neg (Neg); Nitrite, Urine Neg (Neg); Protein, Urine 4+ (Neg); Specific Gravity, Urine 1.025 (1.003-1.022); Urobilinogen, Urine NORM (Normal)
[2024-05-23 18:36] LABS: Bun/Creatinine Ratio 29.1 (12.0-20.0); Calcium, Blood 9.1 mg/dL (8.5-10.1); Creatinine, Blood 1.34 mg/dL (0.60-1.20); Potassium, Blood 3.7 mmol/L (3.5-5.5)
[2024-05-23 18:37] LABS: Appearance, Urine Hazy (Clear); Red Blood Cells, Urine 0-2 /hpf (0-2); White Blood Cells, Urine 0-2 /hpf (0-5)
[2024-05-23 18:38] LABS: Amorphous Mod (0-Heavy); Bacteria Mod /hpf; Mucus Mod (0-Heavy); Squamous Epithelial Cells Rare /hpf (Few)
[2024-05-23 18:39] LABS: Granular Casts 0-2 /lpf (0); Hyaline Casts 0-2 /lpf (0-2)
[2024-05-23] MEDS ORDERED: NS KCL 40 mEq 1,000 ML IV SCH (18:50)
[2024-05-23] MEDS ORDERED: Insulin Human Regular 100 UNIT in NS 100 ML IV SCH (18:50)
[2024-05-23] MEDS ORDERED: FLU VACC TS2024-25(6MOS UP)/PF 45 MCG/0.5 ML SYRINGE IM SCH (19:25)
[2024-05-23] MEDS ORDERED: NS 1,000 ML IV SCH (19:25)
[2024-05-23] MEDS ORDERED: Metoclopramide HCl 5MG / ML 2ML Vial IV PRN (19:25)
[2024-05-23] MEDS ORDERED: Loperamide HCl 2 MG Cap PO PRN (19:25)
[2024-05-23] MEDS ORDERED: Ondansetron HCl 2 MG / ML 2ML Vial IV PRN (19:25)
[2024-05-23] MEDS ORDERED: Enoxaparin 40 MG/0.4 ML SYR SC SCH (20:00)
[2024-05-23 20:04] LABS: Bun/Creatinine Ratio 27.7 (12.0-20.0); Calcium, Blood 9.1 mg/dL (8.5-10.1); Creatinine, Blood 1.41 mg/dL (0.60-1.20)
[2024-05-23] MEDS ORDERED: HydrALAZINE HCl 20 MG / ML 1ML Vial IV ONE (20:40)
[2024-05-23 21:00] VITALS: BP 198/97
[2024-05-23 22:00] VITALS: BP 209/115
[2024-05-23 22:30] VITALS: BP 196/105
[2024-05-23 23:00] VITALS: BP 220/125
[2024-05-23] MEDS ORDERED: HydrALAZINE HCl 20 MG / ML 1ML Vial IV PRN (23:10)
[2024-05-23] MEDS ORDERED: Haloperidol Lactate Inj. 5 MG/ML Injection IV PRN (23:20)
--- NOTE | 2024-05-23 23:22 | NUR ---
ADMISSION NOTE PT ARRIVED FROM ED ON HOSPITAL BED AT 2100. PT SOMNOLENT AND ORIENTED TO ALL, ANSWERS ALL QUESTIONS APPROPRIATELY AND FOLLOWS COMMANDS, IF RELUCTANTLY AT TIMES. SINUS TACH 120 AND ELEVATED BP 198/97. WILL CALL PROVIDER FOR ORDERS. NO CHEST PAIN/PRESSURE, SHEA, BLURRY VISSION. RESPIRATIONS AT 24/MIN. LUNGS CLEAR. PT SEVERE NAUSEA AND DRY HEAVES. 8MG ZOFRAN IN AMBULANCE AND REGLAN AND HALDOL IN THE ED, WHICH WAS THE ONE MEDICATION THAT DECREASED THE PT'S NAUSEA FOR A SHOFT PERIOD OF TIME. HISTOICAL DIARRHEA BEFORE ARRIVAL- STOOL SAMPLE TO BE COLLECTED. NS W 40KCL INFUSING AT 150ML/HR AND INSULIN INFUSING AT 4 UNITS/HR. PT HAS CALL LIGHT.
[2024-05-23] MEDS ORDERED: AmLODIPine Besylate 5 MG Tab PO SCH (23:25)
[2024-05-23] MEDS ORDERED: Lisinopril 20 MG Tab PO SCH (23:26)
[2024-05-23 23:30] VITALS: BP 203/105
[2024-05-24] VITALS (23 sets, daily range): BP systolic 149–199; BP diastolic 84–137
[2024-05-24 02:06] LABS: Bun/Creatinine Ratio 26.9 (12.0-20.0); Calcium, Blood 8.9 mg/dL (8.5-10.1); Creatinine, Blood 1.45 mg/dL (0.60-1.20); Potassium, Blood 3.8 mmol/L (3.5-5.5)
[2024-05-24] MEDS ORDERED: Potassium Chloride 40 MEQ IV SCH (02:45)
[2024-05-24] MEDS ORDERED: Lactated Ringer's 1,000 ML IV SCH (02:45)
[2024-05-24] MEDS ORDERED: Potassium Chloride 40 MEQ in NS 250 ML IV ONE ×2 (04:00→11:45)
[2024-05-24] MEDS ORDERED: D5W-1/2NS 1,000 ML IV SCH (06:00)
--- NOTE | 2024-05-24 07:35 | NUR ---
SHIFT SUMMARY PT SOMNOLENT AND ORIENTED TO ALL, ANSWERS ALL QUESTIONS APPROPRIATELY AND FOLLOWS COMMANDS, IF RELUCTANTLY AT TIMES. SINUS TACH 117 AND ELEVATED BP, SYSTOLIC 160'S AT END OF SHIFT BUT AVERAGE WAS 180'S. PT WAS GIVEN HIS NIGHTLY DOSE OF AMLODIPINE AND LISINOPRIL AROUND MIDNIGHT AND 2 PRN DOSES OF 20MG HYDRALAZINE. NO CHEST PAIN/PRESSURE, SHEA, BLURRY VISSION. RESPIRATIONS AT 24/MIN. LUNGS CLEAR. PT C/O NAUSEA AND DRY HEAVES THOUGHOUT MUCH OF SHIFT. NS FLUSHES MAKE NAUSEA WORSE. ZOFRAN WAS GIVEN IN AMBULANCE AND DID NOT HELP DECREASE N/V. HALDOL OFF LABEL USE AND REGLAN DECREASED NAUSEA BRIEFLY. HISTOICAL DIARRHEA BEFORE ARRIVAL- STOOL SAMPLE STILL NEEDS TO TO BE COLLECTED. D51/2NS INFUSING AT 150ML/HR AND INSULIN INFUSING AT 2.8 UNITS/HR. REPORT GIVEN TO DAY RN. PT HAS CALL LIGHT.
[2024-05-24 07:54] LABS: BASOPHILS ABSOLUTE AUTO 0.04 K/mm3 (0.00-0.23); BASOPHILS PERCENT AUTO 0 % (0-2); EOSINOPHILS PERCENT AUTO 0 % (0-6); Hematocrit 28.2 % (37.0-53.0); Hemoglobin 9.8 g/dL (13.5-17.5); IMMATURE GRAN ABSOLUTE AUTO 0.08 K/mm3 (0.00-0.10); IMMATURE GRAN PERCENT AUTO 1 % (0-1); LYMPHOCYTES ABSOLUTE AUTO 2.17 K/mm3 (0.84-5.20); LYMPHOCYTES PERCENT AUTO 14 % (21-46); MONOCYTES ABSOLUTE AUTO 1.52 K/mm3 (0.16-1.47); MONOCYTES PERCENT AUTO 10 % (4-13); Mean Corpuscular HGB 28.7 pg (26.0-34.0); Mean Corpuscular HGB Conc 34.8 g/dL (31.5-36.5); Mean Corpuscular Volume 83 fL (80-100); Mean Platelet Volume 11.3 fL (9.1-12.4); NEUTROPHILS ABSOLUTE AUTO 12.18 K/mm3 (1.96-9.15); NEUTROPHILS PERCENT AUTO 76 % (41-73); Platelet Count 273 K/mm3 (150-400); RDW Coefficient Variation 13.7 % (11.7-14.2); RDW Standard Deviation 41.2 fL (35.1-46.3); Red Blood Cell Count 3.42 M/mm3 (4.30-5.90); White Blood Cell Count 15.99 K/mm3 (4.00-11.30)
[2024-05-24 08:16] LABS: Albumin/Globulin Ratio 1.1 (0.8-1.8); Bilirubin, Total 0.6 mg/dL (0.1-1.0); Bun/Creatinine Ratio 25.7 (12.0-20.0); Calcium, Blood 8.8 mg/dL (8.5-10.1); Creatinine, Blood 1.36 mg/dL (0.60-1.20); Globulin, Blood 2.8 g/dL (2.2-4.0); Potassium, Blood 3.8 mmol/L (3.5-5.5); Total Protein, Blood 5.8 g/dL (6.4-8.2)
[2024-05-24] MEDS ORDERED: D5W-1/2NS KCl 40mEq 1,000 ML IV SCH (10:20)
[2024-05-24 15:17] LABS: Bun/Creatinine Ratio 20.8 (12.0-20.0); Calcium, Blood 8.8 mg/dL (8.5-10.1); Creatinine, Blood 1.25 mg/dL (0.60-1.20); Potassium, Blood 3.8 mmol/L (3.5-5.5)
[2024-05-24] MEDS ORDERED: CloNIDine 0.1 MG Tab PO SCH (17:00)
--- NOTE | 2024-05-24 19:51 | NUR ---
ASSUMPTION OF CARE PT LYING IN BED SLEEPING, AWAKES TO VOICE AND IS ORIENTED TO ALL. NSR IN HIGH 80'S OR 90'S WITH HIGH BLOOD PRESSURE 192/133 (133). A SECOND DOSE OF AMLOPDIPONE HAS BEEND ADDED, WELL CLONDINE, WHICH WILL BOTH BE GIVEN WITH NIGHTLY MEDS. HYDRALAZINE PRN WELL. SATURATON 99% ON RA. LUNGS CLEAR. NO CHEST PAIN/PRESSURE. NO AB PAIN. MILD NAUSEA- BETTER THAN AT ADMISSION 23 HRS AGO. PT IS BEING ALLOWED TO DRINK WATER. PT IS RESISTANT TO CARE. PT HAS CALL LIGHT NEARBY.
[2024-05-24 19:56] LABS: Bun/Creatinine Ratio 18.7 (12.0-20.0); Calcium, Blood 8.5 mg/dL (8.5-10.1); Creatinine, Blood 1.23 mg/dL (0.60-1.20)
[2024-05-24] MEDS ORDERED: AmLODIPine Besylate 5 MG Tab PO SCH (21:00)
[2024-05-24 21:27] LABS: Potassium, Blood 3.6 mmol/L (3.5-5.5)
[2024-05-25] VITALS (9 sets, daily range): BP systolic 149–188; BP diastolic 78–110
[2024-05-25 04:57] LABS: BASOPHILS ABSOLUTE AUTO 0.07 K/mm3 (0.00-0.23); BASOPHILS PERCENT AUTO 1 % (0-2); EOSINOPHILS PERCENT AUTO 1 % (0-6); Hematocrit 27.8 % (37.0-53.0); Hemoglobin 9.5 g/dL (13.5-17.5); IMMATURE GRAN ABSOLUTE AUTO 0.06 K/mm3 (0.00-0.10); IMMATURE GRAN PERCENT AUTO 1 % (0-1); LYMPHOCYTES ABSOLUTE AUTO 2.57 K/mm3 (0.84-5.20); LYMPHOCYTES PERCENT AUTO 23 % (21-46); MONOCYTES ABSOLUTE AUTO 1.35 K/mm3 (0.16-1.47); MONOCYTES PERCENT AUTO 12 % (4-13); Mean Corpuscular HGB 28.3 pg (26.0-34.0); Mean Corpuscular HGB Conc 34.2 g/dL (31.5-36.5); Mean Corpuscular Volume 83 fL (80-100); NEUTROPHILS ABSOLUTE AUTO 6.92 K/mm3 (1.96-9.15); NEUTROPHILS PERCENT AUTO 63 % (41-73); Platelet Count 237 K/mm3 (150-400); RDW Coefficient Variation 13.4 % (11.7-14.2); RDW Standard Deviation 40.4 fL (35.1-46.3); Red Blood Cell Count 3.36 M/mm3 (4.30-5.90); White Blood Cell Count 11.07 K/mm3 (4.00-11.30)
[2024-05-25 05:28] LABS: Albumin, Blood 2.7 g/dL (3.4-5.0); Bilirubin, Total 0.5 mg/dL (0.1-1.0); Calcium, Blood 8.2 mg/dL (8.5-10.1); Creatinine, Blood 1.2 mg/dL (0.60-1.20); Globulin, Blood 2.7 g/dL (2.2-4.0); Potassium, Blood 3.5 mmol/L (3.5-5.5); Total Protein, Blood 5.4 g/dL (6.4-8.2)
[2024-05-25] MEDS ORDERED: Potassium Chloride 20 MEQ TabCR PO ONE (06:45)
--- NOTE | 2024-05-25 06:47 | NUR ---
SHIFT SUMMARY PT LYING IN BED SLEEPING, AWAKES TO VOICE AND IS ORIENTED TO ALL. HR NSR 82 WITH ELEVATED BP, SBP 150-175. 100% O2 SATURATION ON RA, LUNGS CLEAR. NO CHEST PAIN/PRESSURE. NO SOB. PT C/O OVERACTIVE STOMACH FOLLOWING LOOSE STOOL AT 0500. PT GIVEN LOPERAMIDE. NAUSEA DURING SHFIT WAS GREATLY DECREASED FROM 24 HRS AGO. ONE DOSE OF REGLAN GIVEN. GAP IS CLOSED. INSULIN INFUSING AT 3 WITH D51/2NS INFUSING AT 150. ORDERS HAVE BEEN PLACED FOR LONG ACTING, LOW SLIDING SCALE, ONE DOSE OF 40 KDUR. THESE WILL BE STARTED WHEN PT CAN TOLERATE FOOD. DIET ORDER HAS BEEN PLACED. PT HAS CALL LIGHT.
[2024-05-25] MEDS ORDERED: Insulin Human Lispro 100 Units/ML 3ML Syringe SC SCH (07:30)
[2024-05-25] MEDS ORDERED: Insulin Glargine-Yfgn 100 Unit/mL 3 ML SYR SC SCH ×2 (09:00→21:00)
[2024-05-25] MEDS ORDERED: Potassium Chloride 10 Meq Tablet SA PO ONE (09:55)
--- NOTE | 2024-05-25 11:35 | NUR ---
ASSUMPTION OF CARE ASSUMED CARE OF PATEINT AT 0700. PATIENT ALERT AND ORIENTED X 4, FOLLOWS COMMANDS. HR 70'S AND NSR, O2 SATS > 96% ON ROOM AIR. ZOFRAN GIVEN X 1 FOR NAUSEA. INSULIN GTT STOPEED AT 1030 AFTER RECIEVING AM LONG ACTING INSULIN.
[2024-05-25] MEDS ORDERED: CATAPRES0.1 MG PO (12:36)
[2024-05-25] MEDS ORDERED: ONDA4ODT MM (12:37)
== END 2024-05-25 13:00 | disposition home or self-care (01) | DRG 639 ==
LOC: ER 15:49 → ICUE 15:50 → ERHOLD 15:50 → ICUE 21:04 → ERHOLD 21:04 → ICUE 05-24 13:41 → ERHOLD 05-24 13:41 → ICUE 05-24 19:25
PROVIDERS: Emergency Medicine; Student in an Organized Health Care Education/Training Program; ADMIT Internal Medicine
DX: E10.10 Type 1 diabetes mellitus with ketoacidosis without coma (principal); I16.0 Hypertensive urgency; I10 Essential (primary) hypertension; K52.9 Noninfective gastroenteritis and colitis, unspecified; E86.0 Dehydration
CPT/HCPCS: 0241U; 36415; 80048; 80053; 81001; 82010; 82803; 82947; 85025; 87086; 93005; 93010; 96361; 96365; 96366; 96372; 96372-59; 96374; 96375; 96376; 99285-25; A9270; G0378; J0360; J1630; J1650; J1815; J2405; J2765; J3480; J7042; J7050; J7120

== ENCOUNTER 2025-02-18 12:34 | Inpatient (IN) | payer OTHER ==
[2025-02-18] VITALS (37 sets, daily range): BP systolic 148–217; BP diastolic 67–116
[~2025-02-18] VITALS: Ht 182.9 cm; Wt 91.0 kg
[~2025-02-18 12:34] MED LIST changes: +CATAPRES0.1 MG PO
[2025-02-18 13:01] LABS: pH Blood Venous 7.23 (7.34-7.37)
[2025-02-18 13:03] LABS: BASOPHILS ABSOLUTE AUTO 0.11 K/mm3 (0.00-0.23); BASOPHILS PERCENT AUTO 1 % (0-2); EOSINOPHILS ABSOLUTE AUTO 0.00 K/mm3 (0.00-0.68); EOSINOPHILS PERCENT AUTO 0 % (0-6); Hematocrit 35.1 % (37.0-53.0); Hemoglobin 11.7 g/dL (13.5-17.5); IMMATURE GRAN ABSOLUTE AUTO 0.29 K/mm3 (0.00-0.10); IMMATURE GRAN PERCENT AUTO 2 % (0-1); LYMPHOCYTES ABSOLUTE AUTO 2.38 K/mm3 (0.84-5.20); LYMPHOCYTES PERCENT AUTO 13 % (21-46); MONOCYTES ABSOLUTE AUTO 0.89 K/mm3 (0.16-1.47); MONOCYTES PERCENT AUTO 5 % (4-13); Mean Corpuscular HGB Conc 33.3 g/dL (31.5-36.5); Mean Corpuscular Volume 87 fL (80-100); NEUTROPHILS ABSOLUTE AUTO 14.80 K/mm3 (1.96-9.15); NEUTROPHILS PERCENT AUTO 80 % (41-73); NRBC ABSOLUTE 0.00 K/mm3 (0.00-0.02); NRBC Auto 0.0 /100 WBC (0.0-0.2); Platelet Count 337 K/mm3 (150-400); RDW Coefficient Variation 12.9 % (11.7-14.2); RDW Standard Deviation 40.5 fL (35.1-46.3)
[2025-02-18] MEDS ORDERED: NS 1,000 ML IV SCH ×4 (13:15→14:45)
[2025-02-18 13:25] LABS: Alanine Aminotransfer (ALT/SGP 25 U/L (12-78); Albumin, Blood 2.7 g/dL (3.4-5.0); Albumin/Globulin Ratio 0.7 (0.8-1.8); Anion Gap 26 mmol/L (3-11); Aspartate Aminotrans (AST/SGOT 15 U/L (12-37); Bilirubin, Total 0.5 mg/dL (0.1-1.0); Blood Urea Nitrogen 45 mg/dL (8-24); CO2, Blood 12 mmol/L (21-32); Calcium, Blood 8.7 mg/dL (8.5-10.1); Chloride, Blood 98 mmol/L (98-108); Creatinine, Blood 2.38 mg/dL (0.60-1.20); Globulin, Blood 3.8 g/dL (2.2-4.0); Glucose, Blood 802 mg/dL (70-99); Potassium, Blood 5.1 mmol/L (3.5-5.5); Sodium, Blood 131 mmol/L (136-145); Total Protein, Blood 6.5 g/dL (6.4-8.2)
[2025-02-18] MEDS ORDERED: Insulin Human Regular 100 UNIT in NS 100 ML IV SCH (13:25)
[2025-02-18] MEDS ORDERED: Ondansetron HCl 2 MG / ML 2ML Vial IV PRN ×2 (13:25→18:40)
[2025-02-18 13:30] LABS: Source, Urine Clean Catch
[2025-02-18 13:35] LABS: Bilirubin, Urine Neg (Neg); Color, Urine Yellow (P-Yellow); Glucose Qualitative, Urine 4+ (Neg); Ketones, Urine 4+ (Neg); Leukocyte Esterase, Urine Neg (Neg); Protein, Urine 3+ (Neg); Specific Gravity, Urine 1.020 (1.003-1.022); Urobilinogen, Urine NORM (Normal)
[2025-02-18 13:44] LABS: Red Blood Cells, Urine 0-2 /hpf (0-2); White Blood Cells, Urine 0-2 /hpf (0-5)
[2025-02-18 14:09] LABS: Influenza A, PCR NEGATIVE (NEGATIVE); Influenza B, PCR NEGATIVE (NEGATIVE); Resp Syncytial Virus, PCR NEGATIVE (NEGATIVE); SARS-Cov-2 (COVID-19) PCR, MMC NEGATIVE (NEGATIVE)
[2025-02-18] MEDS ORDERED: NS 1,000 ML IV STA (14:41)
[2025-02-18] MEDS ORDERED: FLU VACC TS2025-26(6MOS UP)/PF 45 MCG/0.5 ML SYRINGE IM SCH (14:45)
[2025-02-18] MEDS ORDERED: Insulin Regular 100 UNIT/ML 10ML Vial IV ONE (14:45)
[2025-02-18 14:50] LABS: Anion Gap 27.0 mmol/L (3-11); Blood Urea Nitrogen 43.0 mg/dL (8-24); CO2, Blood 9.0 mmol/L (21-32); Calcium, Blood 7.9 mg/dL (8.5-10.1); Chloride, Blood 104.0 mmol/L (98-108); Creatinine, Blood 2.21 mg/dL (0.60-1.20); Glucose, Blood 706.0 mg/dL (70-99); Potassium, Blood 4.7 mmol/L (3.5-5.5); Sodium, Blood 135.0 mmol/L (136-145)
[2025-02-18] MEDS ORDERED: HydrALAZINE HCl 20 MG / ML 1ML Vial IV PRN (14:55)
[2025-02-18] MEDS ORDERED: NS 1,000 ML IV ONE (15:15)
[2025-02-18 16:22] LABS: Glucose, Blood 461 mg/dL (70-99)
--- NOTE | 2025-02-18 16:53 | NUR ---
ARRIVAL TO ICU: PT ARRIVED TO ICU-2 VIA GURNEY AT APPROX 1445. ALERT, ORIENTED X4. HR 110-120'S, SINUS TACH ON MONITOR. SBP UP TO 210'S, DENIES CHEST PAIN/PRESSURE/HEADACHE. PRN HYDRALAZINE ADMINISTERED PER EMAR. SPO2 >95% ON RA. AFEBRILE W/ ORAL TEMP. ABLE TO VOID INDEPENDENTLY IN URINAL, LIGHT YELLOW IN COLOR. BILAT AC PIV SALINE LOCKED, POWERGLIDE TO CONG INFUSING NS & INSULIN GTT PER EMAR. SEE FLOWSHEET FOR TITRATIONS. CBG CHECKS PER PROTOCOL. PT W/ NAUSEA/VOMITING ON ARRIVAL, ABLE TO TOLERATE ICE CHIPS THIS EVENING. DR. YORK UPDATED ON PT CONDITION, PLAN TO REDRAW LABS AT 1730 & NOTIFY W/ RESULTS. NO OTHER NEEDS AT THIS TIME, CALL LIGHT IN REACH.
[2025-02-18 17:07] LABS: U Amphetamine Screen Not Detected; U Barbiturate Screen Not Detected; U Benzodiazapine Screen Not Detected; U Buprenorphine Screen Not Detected; U Cannabinoids Screen DETECTED; U Cocaine Screen Not Detected; U Methadone Screen Not Detected; U Methamphetamine Screen Not Detected; U Opiates Screen Not Detected; U Oxycodone Screen Not Detected; U Phencyclidine Screen Not Detected
[2025-02-18 18:06] LABS: Albumin, Blood 2.4 g/dL (3.4-5.0); Anion Gap 17 mmol/L (3-11); Blood Urea Nitrogen 36 mg/dL (8-24); CO2, Blood 16 mmol/L (21-32); Calcium, Blood 7.8 mg/dL (8.5-10.1); Chloride, Blood 112 mmol/L (98-108); Creatinine, Blood 2.03 mg/dL (0.60-1.20); Glucose, Blood 325 mg/dL (70-99); Magnesium, Blood 2.1 mg/dL (1.6-2.4); Phosphorus, Blood 2.3 mg/dL (2.5-4.9); Potassium, Blood 3.7 mmol/L (3.5-5.5); Sodium, Blood 141 mmol/L (136-145)
[2025-02-18] MEDS ORDERED: D5W-1/2NS KCl 20mEq 1,000 ML IV SCH (18:40)
[2025-02-18] MEDS ORDERED: Potassium Chl 20MEQ/Water100ML 100 ML IV ONE (19:50)
[2025-02-18 21:49] LABS: Albumin, Blood 2.3 g/dL (3.4-5.0); Anion Gap 13 mmol/L (3-11); Blood Urea Nitrogen 33 mg/dL (8-24); CO2, Blood 19 mmol/L (21-32); Calcium, Blood 7.9 mg/dL (8.5-10.1); Chloride, Blood 115 mmol/L (98-108); Creatinine, Blood 2.05 mg/dL (0.60-1.20); Glucose, Blood 214 mg/dL (70-99); Magnesium, Blood 2.1 mg/dL (1.6-2.4); Phosphorus, Blood 2.0 mg/dL (2.5-4.9); Potassium, Blood 4.2 mmol/L (3.5-5.5); Sodium, Blood 143 mmol/L (136-145)
[2025-02-19] VITALS (39 sets, daily range): BP systolic 110–217; BP diastolic 62–124
--- NOTE | 2025-02-19 01:27 | NUR ---
NAUSEA PT C/O NAUSEA. DR HOUSE NOTIFIED, AWAITING ORDERS
[2025-02-19] MEDS ORDERED: Prochlorperazine Edisylate 10 mg Vial IV PRN (01:30)
[2025-02-19 02:23] LABS: Albumin, Blood 2.4 g/dL (3.4-5.0); Anion Gap 12 mmol/L (3-11); Blood Urea Nitrogen 28 mg/dL (8-24); CO2, Blood 21 mmol/L (21-32); Calcium, Blood 8.1 mg/dL (8.5-10.1); Chloride, Blood 114 mmol/L (98-108); Creatinine, Blood 1.76 mg/dL (0.60-1.20); Glucose, Blood 158 mg/dL (70-99); Magnesium, Blood 2.2 mg/dL (1.6-2.4); Phosphorus, Blood 2.4 mg/dL (2.5-4.9); Potassium, Blood 3.6 mmol/L (3.5-5.5); Sodium, Blood 143 mmol/L (136-145)
[2025-02-19] MEDS ORDERED: Labetalol HCL 5 MG/ML 4ML Injection (Single Dose) IV PRN (02:30)
[2025-02-19] MEDS ORDERED: DiphenhydrAMINE HCl 50 MG/ML 1ML Vial IV ONE (03:55)
[2025-02-19] MEDS ORDERED: HydrALAZINE HCl 20 MG / ML 1ML Vial IV PRN (04:55)
[2025-02-19 05:16] LABS: BASOPHILS ABSOLUTE AUTO 0.05 K/mm3 (0.00-0.23); BASOPHILS PERCENT AUTO 0 % (0-2); EOSINOPHILS ABSOLUTE AUTO 0.00 K/mm3 (0.00-0.68); EOSINOPHILS PERCENT AUTO 0 % (0-6); Hematocrit 28.8 % (37.0-53.0); Hemoglobin 10.0 g/dL (13.5-17.5); IMMATURE GRAN ABSOLUTE AUTO 0.18 K/mm3 (0.00-0.10); IMMATURE GRAN PERCENT AUTO 1 % (0-1); LYMPHOCYTES ABSOLUTE AUTO 2.24 K/mm3 (0.84-5.20); LYMPHOCYTES PERCENT AUTO 12 % (21-46); MONOCYTES ABSOLUTE AUTO 2.14 K/mm3 (0.16-1.47); MONOCYTES PERCENT AUTO 12 % (4-13); Mean Corpuscular HGB Conc 34.7 g/dL (31.5-36.5); Mean Corpuscular Volume 84 fL (80-100); NEUTROPHILS ABSOLUTE AUTO 13.43 K/mm3 (1.96-9.15); NEUTROPHILS PERCENT AUTO 74 % (41-73); NRBC ABSOLUTE 0.00 K/mm3 (0.00-0.02); NRBC Auto 0.0 /100 WBC (0.0-0.2); Platelet Count 276 K/mm3 (150-400); RDW Coefficient Variation 13.2 % (11.7-14.2); RDW Standard Deviation 40.7 fL (35.1-46.3)
[2025-02-19 05:37] LABS: Albumin, Blood 2.2 g/dL (3.4-5.0); Anion Gap 11 mmol/L (3-11); Blood Urea Nitrogen 25 mg/dL (8-24); CO2, Blood 21 mmol/L (21-32); Calcium, Blood 7.9 mg/dL (8.5-10.1); Chloride, Blood 114 mmol/L (98-108); Creatinine, Blood 1.67 mg/dL (0.60-1.20); Glucose, Blood 163 mg/dL (70-99); Magnesium, Blood 2.0 mg/dL (1.6-2.4); Phosphorus, Blood 2.4 mg/dL (2.5-4.9); Potassium, Blood 4.0 mmol/L (3.5-5.5); Sodium, Blood 142 mmol/L (136-145)
--- NOTE | 2025-02-19 05:54 | NUR ---
SHIFT SUMMARY: PT REMAINS A&O X 4, PLEASANT AND COOPERATIVE WITH CARE. ABLE TO MAKE NEEDS KNOWN. PT CONTINUES ON RA, LUNGS CLEAR T/O AND DENIES SOB. PT SR-ST ON MONITOR WITH HR 90-110'S, SBP 190-210 AND DENIES CHEST PAIN/PRESSURE. SPOKE WITH PROVIDER THROUGHOUT THE NIGHT WITH BP CONCERNS; PT MEDICATED WITH HYDRALAZINE AND LABETOLOL WITH MINIMAL EFFECT. DR. HOUSE UPDATED AND AWARE; NEW ORDERS RECIEVED FOR INCREASE IN DOSE AND FREQUENCY OF HYDRALAZINE. PT REMAINS NPO, INCREASE IN N/V THROUGHOUT THE SHIFT. PROVIDER AWARE AND COMPAZINE ADDED TO EMAR WITH MINIMAL EFFECT; BENADRYL GIVEN WITH GOOD EFFECT. PT USING URINAL IN BED INDEPENDENTLY. CONG PG INFILTRATED AT START OF SHIFT; KCL INFILTRATED AND HYALURONIDASE GIVEN SUBQ PER PHARMACY. CONG WITHOUT PAIN/TENDERNESS, SOME SWELLING NOTED. NEW PG PLACED TO EFRAIN THAT IS PATENT AND INFUSING D5 1/2 NS 20 MEQ KCL @ 150 MLS/HR. RAC PIV PATENT AND INFUSING INSULIN GTT @ 1.7 UN/HR AND KCL RIDER. BED LOWERED, WILL REPORT TO ONCOMING RN.
--- NOTE | 2025-02-19 07:30 | NUR ---
ASSUMED CARE. pT RECEIVED IN BED. PT C/O NAUSEA AND VOMITING. COMPAZINE GIVEN. PT HTN OF 212. LABETOLOL GIVEN. PT ALERT AND ORIENTED X 3. DKA PROTOCHOL WITH INSULIN DRIP CONT. WILL TRY TO TRANSITION LATER. PT REFUSING TO DRINK ANYTHING D/T NAUSEA.
[2025-02-19] MEDS ORDERED: NS 1,000 ML IV SCH (07:45)
[2025-02-19] MEDS ORDERED: Potassium Phosphate Dibasic 20 MM in Dextrose 5% 500 ML IV STA (07:48)
[2025-02-19] MEDS ORDERED: Insulin Glargine 100 Unit/ML 3 ML SYR SC SCH (08:00)
[2025-02-19] MEDS ORDERED: Insulin Human Lispro 100 Units/ML 3ML Syringe SC SCH (08:00)
[2025-02-19] MEDS ORDERED: Misc. Tablet PO SCH (09:00)
--- NOTE | 2025-02-19 13:44 | NUR ---
pT STATED THAT HE NEVER STARTED THE PERSCRIPTION FOR LEXAPRO OR GENERIC. DR. YORK NOTIFED AND D/C ORDER.
--- NOTE | 2025-02-19 17:44 | NUR ---
END OF SHIFT SUMMARY. INSULIN DRIP OFF AT 0900. ACCUCHECK HAVE REMAIN 200-230 WITH SLIDING SCALE COVERAGE.SBP >200 AT START OF SHIFT. COMPAZINE GIVEN AND PT TOOK PO MEDICATIONS AND SBP REMAINIGN 130S.PT C/O MILD NAUSEA OFF AND ON BUT DID FEEL BETTER AFTER CRACKERS AND ENSURE CLEAR MATHEW FLAVORED. NOTIFED AND TO DOWNGRADED TO MED TELE. 0 C/O PAIN, PT REFUSED TO GET OOB. PT SLEPT MOST OF SHIFT.
[2025-02-19 17:48] LABS: Anion Gap 9.0 mmol/L (3-11); Blood Urea Nitrogen 22.0 mg/dL (8-24); CO2, Blood 22.0 mmol/L (21-32); Calcium, Blood 7.6 mg/dL (8.5-10.1); Chloride, Blood 114.0 mmol/L (98-108); Creatinine, Blood 1.93 mg/dL (0.60-1.20); Glucose, Blood 256.0 mg/dL (70-99); Potassium, Blood 3.6 mmol/L (3.5-5.5); Sodium, Blood 141.0 mmol/L (136-145)
--- NOTE | 2025-02-19 21:09 | NUR ---
NOTIFIED BY ACCESS SERVICE REPRESENTATIVE OF ST ELEVATION IN V LEAD AND MCL. PT ASYMPTOMATIC. PER CHART, PT WITH ST ELEVATION ON 02/[address] PRODUCT SAFETY TECHNICAL ASSISTANT PROVIDER NOTIFIED- NO NEW ORDERS.
[2025-02-20 05:10] LABS: Hematocrit 26.8 % (37.0-53.0); Hemoglobin 9.0 g/dL (13.5-17.5); Mean Corpuscular HGB Conc 33.6 g/dL (31.5-36.5); Mean Corpuscular Volume 88 fL (80-100); NRBC ABSOLUTE 0.00 K/mm3 (0.00-0.02); NRBC Auto 0.0 /100 WBC (0.0-0.2); Platelet Count 250 K/mm3 (150-400); RDW Coefficient Variation 13.6 % (11.7-14.2); RDW Standard Deviation 43.7 fL (35.1-46.3)
--- NOTE | 2025-02-20 05:13 | NUR ---
no acute changes during shift.. patient transfered from ICU. patient alert and oriented, able to make needs known. patient able to turn self in bed. patient does not complain of pain. powerglide in ERFAIN. bed in low position with wheels locked. call light within reach
[2025-02-20 06:01] LABS: Anion Gap 8.0 mmol/L (3-11); Blood Urea Nitrogen 20.0 mg/dL (8-24); CO2, Blood 22.0 mmol/L (21-32); Calcium, Blood 7.9 mg/dL (8.5-10.1); Chloride, Blood 115.0 mmol/L (98-108); Creatinine, Blood 1.83 mg/dL (0.60-1.20); Glucose, Blood 72.0 mg/dL (70-99); Potassium, Blood 3.2 mmol/L (3.5-5.5); Sodium, Blood 142.0 mmol/L (136-145)
[2025-02-20 07:45] VITALS: BP 147/89
[2025-02-20] MEDS ORDERED: NS 250 ML IV PRN (09:45)
[2025-02-20 11:34] VITALS: BP 141/88
--- NOTE | 2025-02-20 15:45 | NUR ---
DISHCARGE 1400 PT AOX4, COOPERATIVE, ABLE TO AMKE NEEDS KNOWN. PT IND IN ROOM, ON ROOM AIR. POWERGLIDE DC'D BY THIS RN WITHOUT COMPLICATION. PT WAS TRANSPORTED DOWN TO PT ENTRANCE BY WC BY SURFACE SUPPLY BREATHING APPARATUS. PERSONAL BELONGINGS WENT WITH PT.
== END 2025-02-20 14:35 | disposition home or self-care (01) | DRG 638 ==
LOC: ER 12:34 → ICUE 14:09 → MEDS 02-19 19:48
PROVIDERS: Nurse Practitioner Acute Care; Student in an Organized Health Care Education/Training Program; ADMIT Internal Medicine
DX: E10.10 Type 1 diabetes mellitus with ketoacidosis without coma (principal); N17.9 Acute kidney failure, unspecified; E86.0 Dehydration; D72.829 Elevated white blood cell count, unspecified; E83.39 Other disorders of phosphorus metabolism; E87.6 Hypokalemia; R11.16 Cannabis hyperemesis syndrome; F12.90 Cannabis use, unspecified, uncomplicated; I10 Essential (primary) hypertension; F31.9 Bipolar disorder, unspecified; F43.10 Post-traumatic stress disorder, unspecified; E10.42 Type 1 diabetes mellitus with diabetic polyneuropathy; Z79.4 Long term (current) use of insulin; Z87.891 Personal history of nicotine dependence
CPT/HCPCS: 36415; 71045; 80048; 80053; 80069; 81001; 82010; 82803; 82947; 83036; 83735; 85025; 85027; 87637; 93005; 93010; 96361; 96374; 99285-25; A9270; C1751; J0360; J0780; J1200; J1815; J2405; J3470; J3480; J7030; J7050; J7060